=== PATIENT | male | born 1955 | race Caucasian/White ===

== ENCOUNTER 2021-03-10 02:24 | Emergency (ER) | payer MEDICARE ==
[~2021-03-10] VITALS: Ht 185.4 cm; Wt 115.9 kg
[2021-03-10 02:28] VITALS: BP 113/72
[2021-03-10] MEDS ORDERED: normal saline 1000ml 1,000 ML IV ONE (02:55)
[2021-03-10 03:16] LABS: BASOPHILS # (AUTO) 0.1 X10'3 (0-0.2); BASOPHILS % (AUTO) 0.9 % (0-1); EOSINOPHILS # (AUTO) 0.2 X10'3 (0-0.9); EOSINOPHILS % (AUTO) 3.1 % (0-6); HEMATOCRIT 41.6 % (42.0-52.0); LYMPHOCYTES # (AUTO) 0.7 X10'3 (1.1-4.8); LYMPHOCYTES % (AUTO) 10.1 % (21-51); MEAN CORPUSCULAR HEMOGLOBIN 32.8 PG (27.0-31.0); MEAN CORPUSCULAR HGB CONC 33.7 g/dL (33.0-36.5); MEAN CORPUSCULAR VOLUME 97.5 FL (78-98); MONOCYTES # (AUTO) 0.7 X10'3 (0-0.9); MONOCYTES % (AUTO) 9.5 % (2-12); NEUTROPHILS # (AUTO) 5.6 X10'3 (1.8-7.7); NEUTROPHILS % (AUTO) 76.4 % (42-75); PLATELET COUNT 175 X10'3 (140-440); RED BLOOD COUNT 4.27 X10'6 (4.70-6.10); RED CELL DISTRIBUTION WIDTH 14.6 % (11.5-14.5); WHITE BLOOD COUNT 7.3 X10'3 (4.5-11.0)
[2021-03-10 03:20] LABS: ALANINE AMINOTRANSFERASE 22 U/L (12-78); ALBUMIN 3.9 G/DL (3.4-5.0); ALBUMIN/GLOBULIN RATIO 0.9 (1.1-1.5); ALKALINE PHOSPHATASE 102 IU/L (46-116); ANION GAP 9 (8-16); ASPARTATE AMINO TRANSFERASE 17 U/L (10-37); BILIRUBIN,TOTAL 0.9 MG/DL (0.1-1.0); BLOOD UREA NITROGEN 49 MG/DL (7-18); BUN/CREATININE RATIO 17.9 (5.4-32.0); CALCIUM 8.6 MG/DL (8.5-10.1); CHLORIDE 98 MMOL/L (99-107); CREATININE 2.74 MG/DL (0.60-1.10); ETHANOL < 0.010 GM/DL (0.0-0.010); GLUCOSE 218 MG/DL (70-104); MAGNESIUM 1.9 MG/DL (1.5-2.4); POTASSIUM 4.5 MMOL/L (3.5-5.1); SODIUM 135 MMOL/L (135-145); TOTAL CARBON DIOXIDE 28.5 MMOL/L (24-32); TOTAL PROTEIN 8.1 G/DL (6.4-8.2); eGFR 23 ML/MIN
[2021-03-10 03:40] LABS: CLARITY,URINE CLEAR (Clear); COLOR,URINE STRAW (Yellow); GLUCOSE, URINE NEGATIVE (Neg); KETONES,URINE NEGATIVE (Neg); LEUKOCYTE ESTERASE ,URINE NEGATIVE (Neg); NITRITES, URINE NEGATIVE (Neg); OCCULT BLOOD,URINE TRACE-INTACT (Neg); PH,URINE 6.5 (4.8-8.0); PROTEIN,URINE NEGATIVE (Neg); UROBILINOGEN,URINE 0.2 E.U/dL (0.2-1.0)
[2021-03-10] MEDS ORDERED: TETanus/Pertussis (Acell)/Diphther VAC/PF (Tdap-Adult) 0.5ml syringe IMVAC ONE (03:40)
[2021-03-10 03:42] LABS: UA COLLECTION TYPE CLN CATCH MIDSTREAM
[2021-03-10 03:49] LABS: BACTERIA,URINE NONE SEEN /HPF (Neg); MUCUS STRANDS NONE SEEN /LPF (Neg); RBC,URINE 0-2 /HPF (0-2); SQUAMOUS EPITHELIAL CELL,UR NONE SEEN /LPF (FEW); WBC,URINE NONE SEEN /HPF (0-4)
== END 2021-03-10 05:29 | disposition home or self-care (01) ==
LOC: ER 02:26
DX: S80.01XA Contusion of right knee, initial encounter (principal); R55 Syncope and collapse; N19 Unspecified kidney failure; M25.461 Effusion, right knee; I25.10 Atherosclerotic heart disease of native coronary artery without angina pectoris; I50.9 Heart failure, unspecified; E11.9 Type 2 diabetes mellitus without complications; F17.200 Nicotine dependence, unspecified, uncomplicated; Z20.3 Contact with and (suspected) exposure to rabies; Z98.890 Other specified postprocedural states; X58.XXXA Exposure to other specified factors, initial encounter; Y93.89 Activity, other specified; Y92.89 Other specified places as the place of occurrence of the external cause; Y99.8 Other external cause status
CPT/HCPCS: 36415; 71045; 73564; 80053; 80320; 81001; 83735; 84484; 85025; 90471; 90715; 93005; 99285

== ENCOUNTER 2021-11-29 09:57 | Outpatient (CLI) | payer MEDICARE, MEDICAID ==
[~2021-11-29] VITALS: Ht 185.4 cm; Wt 102.1 kg
[2021-11-29 10:44] LABS: TOTAL HEMOGLOBIN 15.4 G/dl (14.0-18.0)
[2021-11-29] MEDS ORDERED: albuterol 2.5 MG/3 ML nebule NEB PRN (11:05)
== END 2021-11-29 23:59 | disposition home or self-care (01) ==
LOC: RT 09:57
PROVIDERS: ATTEND Nurse Practitioner
DX: J44.9 Chronic obstructive pulmonary disease, unspecified (principal); Z87.891 Personal history of nicotine dependence; Z79.899 Other long term (current) drug therapy
CPT/HCPCS: 85018; 94060; 94727; 94729; 94760

== ENCOUNTER 2022-02-18 09:32 | Outpatient (CLI) | payer MEDICARE, MEDICAID | END 2022-02-18 23:59 | disposition home or self-care (01) | LOC: VAS 09:32 | PROVIDERS: ATTEND Surgery | DX: I70.291 Other atherosclerosis of native arteries of extremities, right leg (principal); I70.8 Atherosclerosis of other arteries | CPT/HCPCS: 93922; 93926 ==

== ENCOUNTER 2022-03-26 21:56 | Emergency (ER) | payer MEDICARE, MEDICAID ==
[~2022-03-26] VITALS: Ht 185.4 cm; Wt 104.5 kg
[~2022-03-26 21:56] MED LIST: ALBU18HF2 PO; ALBU2.5V10 NEB; APIX5TAB3 PO; ASPI-611 PO; ATOR40TA72 PO; BUME2TAB7 PO; EPLE25TA4 PO; FLUT1BLS4 INH; FURO40TA4 PO; HYDR-3972 PO; INSU300I3 SQ; ISOS10TA8 PO; LORA10TA7 PO; METO-384 PO; NOVRI SQ; PRE5T PO; RANO500T6 PO; SACU1TAB PO
[2022-03-26] MEDS ORDERED: pantoprazole 40MG/NS 100ML BAG 100 ML IV ONE ×2 (22:40→22:45)
--- NOTE | 2022-03-26 23:30 | NUR ---
IV was not able to be obtianed at this time and labs will need to be resent.
[2022-03-26 23:54] LABS: BASOPHILS # (AUTO) 0.1 X10'3 (0-0.2); BASOPHILS % (AUTO) 1.3 % (0-1); EOSINOPHILS % (AUTO) 0.8 % (0-6); HEMATOCRIT 44.6 % (42.0-52.0); HEMOGLOBIN 15.1 g/dl (14.0-17.9); LYMPHOCYTES # (AUTO) 0.8 X10'3 (1.1-4.8); LYMPHOCYTES % (AUTO) 14.3 % (21-51); MEAN CORPUSCULAR HEMOGLOBIN 29.8 PG (27.0-31.0); MEAN CORPUSCULAR HGB CONC 33.8 g/dL (33.0-36.5); MEAN CORPUSCULAR VOLUME 88.4 FL (78-98); MEAN PLATELET VOLUME 8.6 FL (7.4-10.4); MONOCYTES # (AUTO) 0.5 X10'3 (0-0.9); MONOCYTES % (AUTO) 10.2 % (2-12); NEUTROPHILS # (AUTO) 3.9 X10'3 (1.8-7.7); NEUTROPHILS % (AUTO) 73.4 % (42-75); PLATELET COUNT 193 X10'3 (140-440); RED BLOOD COUNT 5.04 X10'6 (4.70-6.10); WHITE BLOOD COUNT 5.3 X10'3 (4.5-11.0)
--- NOTE | 2022-03-27 00:25 | NUR ---
residential fee appraiser still aware pt needs an IV and labs. Lab attempted to draw blood 3 times and was not successful
[2022-03-27 01:00] VITALS: BP 103/65
== END 2022-03-27 01:11 | disposition home or self-care (01) ==
LOC: ER 21:58
DX: Z71.1 Person with feared health complaint in whom no diagnosis is made (principal); I50.9 Heart failure, unspecified; E11.9 Type 2 diabetes mellitus without complications; Z87.891 Personal history of nicotine dependence
CPT/HCPCS: 36415; 85025; 86885; 86900; 86901; 93005; 99284

== ENCOUNTER 2022-08-20 10:19 | Inpatient (IN) | payer MEDICARE, MEDICAID ==
[2022-08-20] VITALS (10 sets, daily range): BP systolic 76–129; BP diastolic 50–97
[~2022-08-20] VITALS: Ht 185.4 cm; Wt 105.4 kg
[~2022-08-20 10:19] MED LIST changes: -FURO40TA4 PO
[2022-08-20] MEDS ORDERED: ipratropium/albuterol 3ml nebule NEB ONE (10:25)
[2022-08-20] MEDS ORDERED: azithromycin/NS 500mg/250ml 250 ML IV ONE (10:25)
[2022-08-20] MEDS ORDERED: CefTRIAXone 2gm/D5W 50ml BAG 50 ML IV ONE (10:25)
[2022-08-20] MEDS ORDERED: normal saline 1000ML IV soln IV ONE (10:25)
[2022-08-20] MEDS ORDERED: methylPREDNISolone sod succ 125mg/2ml vial IV ONE (10:29)
--- NOTE | 2022-08-20 11:05 | NUR ---
IV FLUIDS INFUSING ON PRESSURE BAG - RT AT BEDSIDE FOR ABG AND SVN - LABS SENT, EKG AND XRAY DONE
[2022-08-20 11:09] LABS: BASOPHILS % (AUTO) 0.2 % (0-1); EOSINOPHILS # (AUTO) 0.1 X10'3 (0-0.9); EOSINOPHILS % (AUTO) 0.3 % (0-6); HEMOGLOBIN 13.1 g/dl (14.0-17.9); LYMPHOCYTES # (AUTO) 0.2 X10'3 (1.1-4.8); LYMPHOCYTES % (AUTO) 1.2 % (21-51); MEAN CORPUSCULAR HEMOGLOBIN 32.2 PG (27.0-31.0); MEAN CORPUSCULAR HGB CONC 33.5 g/dL (33.0-36.5); MEAN CORPUSCULAR VOLUME 96.1 FL (78-98); MEAN PLATELET VOLUME 8.7 FL (7.4-10.4); MONOCYTES # (AUTO) 0.5 X10'3 (0-0.9); MONOCYTES % (AUTO) 3.2 % (2-12); NEUTROPHILS # (AUTO) 16.3 X10'3 (1.8-7.7); NEUTROPHILS % (AUTO) 95.1 % (42-75); PLATELET COUNT 118 X10'3 (140-440); RED BLOOD COUNT 4.06 X10'6 (4.70-6.10); WHITE BLOOD COUNT 17.1 X10'3 (4.5-11.0)
[2022-08-20 11:23] LABS: ALANINE AMINOTRANSFERASE 18 U/L (12-78); ALBUMIN 2.4 G/DL (3.4-5.0); ALBUMIN/GLOBULIN RATIO 0.5 (1.1-1.5); ALKALINE PHOSPHATASE 79 IU/L (46-116); ANION GAP 16 (8-16); ASPARTATE AMINO TRANSFERASE 29 U/L (10-37); BILIRUBIN,TOTAL 3.3 MG/DL (0.1-1.0); BLOOD UREA NITROGEN 75 MG/DL (7-18); CALCIUM 7.8 MG/DL (8.5-10.1); CHLORIDE 88 MMOL/L (99-107); GLUCOSE 88 MG/DL (70-104); POTASSIUM 3.8 MMOL/L (3.5-5.1); SODIUM 126 MMOL/L (135-145); TOTAL CARBON DIOXIDE 21.6 MMOL/L (24-32)
[2022-08-20 11:26] LABS: CREATININE 3.95 MG/DL (0.60-1.10); eGFR 15 ML/MIN
--- NOTE | 2022-08-20 11:33 | NUR ---
pt being placed on bipap by RT - 2L infused, hanging 3rd liter now - IV rocephin done starting zithromax now.
[2022-08-20] MEDS ORDERED: NORepinephrine 8mg/ 250ml NS 250 ML IV ONE ×2 (11:35→15:35)
[2022-08-20] MEDS ORDERED: vancomycin/NS 1 GM ADD-VANTAGE 250 ML IV ONE (11:40)
[2022-08-20] MEDS ORDERED: levoFLOXACIN-Levaquin 750MG/D5 150 ML IV ONE (11:40)
[2022-08-20] MEDS ORDERED: LIDOcaine 2% 10ml TOPICAL JELLY (Urojet) TP ONE ×2 (11:45→15:39)
--- NOTE | 2022-08-20 12:12 | NUR ---
at this time only IV access is peripheral 18g to right AC - pt Addendum: 08/20/22 at 1240 by IVETT needs both abx and levophed at this time. spoke with PA regarding incompatability of meds and he states hold abx for now and start levophed. pt rec'd full ordered dose of recephin and appox 1/3 dose of zithromax before d\c of abx for levophed
[2022-08-20 12:30] LABS: ABG BASE EXCESS -8.7 mmol/L (-2.0-2.0); ABG HCO3 17.2 mmol/L (22.0-26.0); ABG PCO2 (T) 36.3 mmHg (35.0-48.0); ABG PO2 (T) 203.5 mmHg (75.0-100.0); ALLEN'S TEST POSITIVE; FCOHb 0.5 % (0.0-3.9); FMetHb 0.4 % (0.0-1.5); FO2Hb 98.1 % (94-97); PATIENT TEMPERATURE 36.6; RESPIRATORY RATE 10 b/min; TOTAL HEMOGLOBIN 14.1 G/dl (14.0-17.9)
--- NOTE | 2022-08-20 14:40 | NUR ---
ELECTRONIC HEALTH RECORDS SPECIALIST AT BEDSIDE FOR EVAL - HE IS AWARE LEVOPHED IS STILL RUNNING THRU A PERIPHERAL VEIN AND THAT PT HAS NO CENTRAL ACCESS AND WE HAVE NOT BEEN ABLE TO ADMIN ABX THAT ARE DUE. PT IS NOW STATING THAT HE WILL AGREE TO BE INTUBATED SHOULD WE NEED TO PROCEED THAT ROUTE. HE REMAINS ON BIPAP AT THIS TIME. VERBAL GIVEN TO RUN NS @125ML/HR
[2022-08-20] MEDS ORDERED: PANT40TA54 PO (14:54)
[2022-08-20] MEDS ORDERED: MONT-40 PO (14:54)
[2022-08-20] MEDS ORDERED: magnesium hydroxide 30ml (MOM) UD suspension PO PRN (14:55)
[2022-08-20] MEDS ORDERED: morphine 4 MG/ML inj SYRINge IV PRN (14:55)
[2022-08-20] MEDS ORDERED: acetaminophen 325mg tablet PO PRN ×2 (14:55)
[2022-08-20] MEDS ORDERED: POTASSIUM BICARB 20meq eff tab 20 MEQ TABLET.EFF PO PRN ×2 (14:55)
[2022-08-20] MEDS ORDERED: morphine 2 MG/ML inj. syringe IV PRN (14:55)
[2022-08-20] MEDS ORDERED: succinylcholine 20mg/ml inj IV ONE ×2 (14:57→15:00)
[2022-08-20] MEDS ORDERED: etomidate 2mg/ml inj. IV ONE (15:00)
[2022-08-20] MEDS ORDERED: midazolam 1 mg/ML 2ml injection IV ONE (15:21)
--- NOTE | 2022-08-20 15:21 | NUR ---
4MG VERSED GIVEN WHILE PHARMACY PREPARES DRIP - VERBAL FROM MD FORDN
--- NOTE | 2022-08-20 15:23 | NUR ---
50 MG SRIDHAR GIVEN PER OHN
[2022-08-20 15:26] LABS: ABG BASE EXCESS -10.7 mmol/L (-2.0-2.0); ABG HCO3 16.1 mmol/L (22.0-26.0); ABG OXYGEN SATURATION 92.9 % (94-97); ABG PO2 (T) 79.2 mmHg (75.0-100.0); ALLEN'S TEST POSITIVE; FCOHb 0.8 % (0.0-3.9); FMetHb 0.4 % (0.0-1.5); FO2Hb 91.8 % (94-97); PATIENT TEMPERATURE 37.6; PEEP 5 cm H2O; RESPIRATORY RATE 18 b/min; TIDAL VOLUME 550 mL; TOTAL HEMOGLOBIN 15.4 G/dl (14.0-17.9)
[2022-08-20] MEDS ORDERED: FENTANYL-0.9 % NACL/PF 100 ML IV PRN (15:29)
[2022-08-20] MEDS ORDERED: midazolam 100mg in NS 100ml 100 ML IV PRN (15:30)
[2022-08-20] MEDS ORDERED: cefepime 1GM/NS ADD-VANTAGE 100 ML IV SCH (16:00)
[2022-08-20] MEDS ORDERED: cefepime 1GM/NS ADD-VANTAGE 100 ML IV ONE (16:12)
--- NOTE | 2022-08-20 16:13 | NUR ---
FAMILY WAS IN LOBBY WAITING TO SEE PT - WE WERE PLACING CENTRAL LINE AND ECHO WAS AT BEDSIDE SO THERE WAS A DELAY. WHEN WE WENT TO GET FAMILY WE WERE INFORMED THAT THEY LEFT TO GO [facility] AND WOULD BE BACK LATER.
--- NOTE | 2022-08-20 17:26 | NUR ---
NOTIFIED DR GONZALEZ THAT PT BRIEFLY DESATTED TO THE HIGH 80S FOR APPROX FIVE MINUTES AFTER PLACEMENT OF OG TUBE. PT IS NOW SATTING AT [address] GONZALEZ, D/C VERSED DRIP AND CONT FENTANYL DRIP ONLY. ICU BED TO BE AVAILABLE TO PT AFTER SHIFT CHANGE.
--- NOTE | 2022-08-20 17:43 | NUR ---
PREVIOUS NOTE WRITTEN BY THIS RN, CHARTED UNDER G. ASPIRIN IN ERROR
--- NOTE | 2022-08-20 18:02 | NUR ---
FENTANYL BOLUS 25MCG GIVEN. AFTER D\C OF VERSED PT IS MOVING HANDS AND SOME LEG MOVEMENT -
--- NOTE | 2022-08-20 18:55 | NUR ---
Patient here from ER into room CICU 2011. I have received report from David KISER and had the opportunity to ask questions and assume patient care. Patient awake, restless and trying to cough out ET tube, titrating fentanyl drip for patient comfort and ventilator synchrony.
[2022-08-20] MEDS: NORepinephrine 8mg/ 250ml NS 250 ML IV ONE ×2 (19:25→19:50)
--- NOTE | 2022-08-20 19:53 | NUR ---
Security at bedside to confiscate white, crystal powder substance found in pt's belongings; awaiting ER registration to pickle sorter lg amt of rico $713.00 found in pt's wallet.
[2022-08-20] MEDS ORDERED: dextrose 50%-water 50ml dispensing syringe IV PRN ×2 (20:30)
[2022-08-20 20:34] LABS: CLARITY,URINE CLOUDY (Clear); COLOR,URINE YELLOW (Yellow); GLUCOSE, URINE NEGATIVE (Neg); KETONES,URINE NEGATIVE (Neg); LEUKOCYTE ESTERASE ,URINE NEGATIVE (Neg); NITRITES, URINE NEGATIVE (Neg); OCCULT BLOOD,URINE LARGE (Neg); PROTEIN,URINE 30 mg/dl (Neg)
[2022-08-20] MEDS: dexmedetomidin/NS 400mcg/100ml 100 ML IV PRN (20:35)
[2022-08-20 20:40] LABS: UA COLLECTION TYPE NON-SPECIFIED
[2022-08-20] MEDS ORDERED: DOPamine 400mg/D5W 250ml 250 ML IV SCH (20:45)
[2022-08-20 20:49] LABS: BACTERIA,URINE 1+ /HPF (Neg); RBC,URINE 20-50 /HPF (0-2); SQUAMOUS EPITHELIAL CELL,UR FEW /LPF (FEW); WBC,URINE 0-4 /HPF (0-4)
[2022-08-20 20:50] LABS: HYALINE CASTS 0-3 /LPF (NEGATIVE); MUCUS STRANDS FEW /LPF (Neg)
[2022-08-20] MEDS ORDERED: bumetanide 0.25mg/ml 4ml vial IV ONE (20:50)
[2022-08-20 20:51] LABS: AMORPHOUS URATES 3+
[2022-08-20] MEDS: insulin glargine (Lantus) pen - multi-dose SQ SCH (21:00)
[2022-08-20] MEDS: ringers solution, lacted 1,000 ML IV SCH (21:06)
[2022-08-20] MEDS: NORepinephrine inj. 32 MG in normal saline 250ml IV soln 218 ML IV SCH (23:08)
[2022-08-20] MEDS: FENTANYL-0.9 % NACL/PF 100 ML IV PRN (23:13)
[2022-08-20 23:23] LABS: HEMOGLOBIN A1C 6.3 % (4.5-6.2)
[2022-08-21] VITALS (34 sets, daily range): BP systolic 84–125; BP diastolic 47–75
[2022-08-21 00:11] LABS: ABG BASE EXCESS -14.1 mmol/L (-2.0-2.0); ABG HCO3 13.2 mmol/L (22.0-26.0); ABG OXYGEN SATURATION 96.6 % (94-97); ABG PCO2 (T) 34.8 mmHg (35.0-48.0); ABG PO2 (T) 94.4 mmHg (75.0-100.0); ALLEN'S TEST POSITIVE; FCOHb 0.3 % (0.0-3.9); FMetHb 0.6 % (0.0-1.5); FO2Hb 95.7 % (94-97); PATIENT TEMPERATURE 36.6; PEEP 5 cm H2O; RESPIRATORY RATE 24 b/min; TIDAL VOLUME 500 mL; TOTAL HEMOGLOBIN 16.2 G/dl (14.0-17.9)
[2022-08-21] MEDS ORDERED: sodium bicarbonate (8.4%) inj. 100 MEQ in sodium chloride 0.45% 1,000 ML IV SCH (00:20)
[2022-08-21] MEDS: methylPREDNISolone sod succ 125mg/2ml vial IV SCH ×3 (00:54→16:37)
[2022-08-21] MEDS: cefepime 1GM/NS ADD-VANTAGE 100 ML IV SCH ×2 (00:54→08:18)
[2022-08-21] MEDS: insulin Lispro (HumaLOG) vial - multi-dose SQ SCH ×2 (02:22→08:16)
[2022-08-21 02:52] LABS: BASOPHILS % (AUTO) 0.1 % (0-1); EOSINOPHILS # (AUTO) 0.2 X10'3 (0-0.9); EOSINOPHILS % (AUTO) 0.7 % (0-6); HEMATOCRIT 45.3 % (42.0-52.0); HEMOGLOBIN 14.7 g/dl (14.0-17.9); LYMPHOCYTES # (AUTO) 0.2 X10'3 (1.1-4.8); LYMPHOCYTES % (AUTO) 0.7 % (21-51); MEAN CORPUSCULAR HEMOGLOBIN 31.4 PG (27.0-31.0); MEAN CORPUSCULAR HGB CONC 32.4 g/dL (33.0-36.5); MEAN CORPUSCULAR VOLUME 96.8 FL (78-98); MEAN PLATELET VOLUME 9.9 FL (7.4-10.4); MONOCYTES # (AUTO) 0.6 X10'3 (0-0.9); MONOCYTES % (AUTO) 1.8 % (2-12); NEUTROPHILS # (AUTO) 30.5 X10'3 (1.8-7.7); NEUTROPHILS % (AUTO) 96.7 % (42-75); PLATELET COUNT 152 X10'3 (140-440); RED BLOOD COUNT 4.68 X10'6 (4.70-6.10); RED CELL DISTRIBUTION WIDTH 15.4 % (11.5-14.5)
[2022-08-21 02:55] LABS: WHITE BLOOD COUNT 31.6 X10'3 (4.5-11.0)
[2022-08-21 03:16] LABS: PLATELET ESTIMATE NORMAL; TOTAL CELLS COUNTED 100
[2022-08-21 03:17] LABS: ANION GAP 22 (8-16); BLOOD UREA NITROGEN 78 MG/DL (7-18); BUN/CREATININE RATIO 27.6 (5.4-32.0); BURR CELLS FEW; CALCIUM 7.2 MG/DL (8.5-10.1); CHLORIDE 94 MMOL/L (99-107); CREATININE 2.83 MG/DL (0.60-1.10); GLUCOSE 194 MG/DL (70-104); MAGNESIUM 1.5 MG/DL (1.5-2.4); PHOSPHORUS 6.5 MG/DL (2.3-4.5); POLYCHROMASIA FEW; POTASSIUM 4.3 MMOL/L (3.5-5.1); SODIUM 131 MMOL/L (135-145); eGFR 22 ML/MIN
[2022-08-21 03:22] LABS: TOTAL CARBON DIOXIDE 14.6 MMOL/L (24-32)
[2022-08-21] MEDS ORDERED: amiodarone 150mg/dext, iso-os 100 ML IV ONE (04:15)
--- NOTE | 2022-08-21 04:15 | NUR ---
Patient converted to Afib w/RVR sustaining in the 140s to 150s. Laith Iverson notified, orders received.
[2022-08-21] MEDS: amiodarone/D5 360MG/200ML BAG 200 ML IV SCH ×3 (04:24→20:51)
[2022-08-21] MEDS: dexmedetomidin/NS 400mcg/100ml 100 ML IV PRN (05:06)
--- NOTE | 2022-08-21 05:42 | NUR ---
Orientee documentation: I have reviewed and agree with all interventions, assessments performed and documented by Taylor KISER . Orientjennifer Medication Administration: For this medication-pass time frame, all medication were reviewed, dispensed, administered and documented per hospital policy by Taylor KISER .
--- NOTE | 2022-08-21 06:21 | NUR ---
Problems reprioritized. Patient report given, questions answered & plan of care reviewed with RASHEL Larsen.
[2022-08-21 07:03] LABS: ABG BASE EXCESS -14.6 mmol/L (-2.0-2.0); ABG HCO3 12.1 mmol/L (22.0-26.0); ABG OXYGEN SATURATION 94.5 % (94-97); ABG PCO2 (T) 33.5 mmHg (35.0-48.0); ABG PO2 (T) 85.2 mmHg (75.0-100.0); ALLEN'S TEST POSITIVE; FCOHb 0.3 % (0.0-3.9); FMetHb 0.5 % (0.0-1.5); FO2Hb 93.7 % (94-97); PATIENT TEMPERATURE 38.2; PEEP 5 cm H2O; RESPIRATORY RATE 24 b/min; TIDAL VOLUME 500 mL; TOTAL HEMOGLOBIN 16.7 G/dl (14.0-17.9)
[2022-08-21] MEDS: FENTANYL-0.9 % NACL/PF 100 ML IV PRN ×3 (07:21→16:32)
[2022-08-21] MEDS: K and/or MAG REPLACEMENT MC SCH (08:00)
[2022-08-21] MEDS ORDERED: sodium bicarbonate (8.4%) inj. 150 MEQ in sodium chloride 0.45% 850 ML IV SCH (09:06)
[2022-08-21] MEDS: sodium bicarbonate (8.4%) inj. 150 MEQ in dextrose 5%-water 850 ML IV SCH ×2 (09:25→20:25)
[2022-08-21] MEDS ORDERED: vasopressin inj. 40 UNIT in dextrose 5%-water 50ml 38 ML IV SCH (10:20)
[2022-08-21] MEDS: vasopressin inj. 40 UNIT in normal saline 50ml IV soln 38 ML IV SCH (10:56)
--- NOTE | 2022-08-21 11:15 | NUR ---
DM/TF consults: Per EMR pt with T2DM, well controlled with A1c 6.3%, DM education not warranted. Pt admit for septic shock secondary to PNA, currently intubated with an OGT in place, to begin TF per MD. See TF recs below that were placed in EMR. Per MD pt to begin Phos binder d/t elevated serum phos of 6.5 mg/dL. Per RN pt with h/o requiring dialysis and currently has a fistula in place, receiving weigher to be consulted. LBM 08/18, with PRN bowel care available. Will continue to follow closely. Recommendations: 1) Continuous Pivot 1.5 via OGT with 70 mL/hr goal to provide 1680 mL total volume/day, 2520 kcal, 158 g protein, and 1275 mL water 2) No additional water flush at this time d/t hyponatremia; monitor serum Na 3) Routine phos binder per MD 4) Prealbumin q Thursday/ 5) Daily scaled weights 6) Routine bowel care Addendum: 08/21/22 at [address] Amended: Links added.
[2022-08-21] MEDS: pantoprazole 40MG/NS 100ML BAG 100 ML IV SCH (11:37)
[2022-08-21 12:05] LABS: PREALBUMIN 6.6 MG/DL (19-36)
[2022-08-21] MEDS ORDERED: calcium acetate 667mg (PhosLO) capsule PO SCH (13:00)
[2022-08-21] MEDS: propofol 1000mg/100ml bottle 100 ML IV SCH (13:32)
[2022-08-21] MEDS: insulin regular, human U-100 3ml vial - multi-dose SQ SCH ×2 (14:30→20:59)
[2022-08-21] MEDS ORDERED: VANCOMYCIN 750MG IV in NS 250 ML IV SCH (15:00)
[2022-08-21 16:32] LABS: ABG BASE EXCESS -7.8 mmol/L (-2.0-2.0); ABG HCO3 17.2 mmol/L (22.0-26.0); ABG OXYGEN SATURATION 98.4 % (94-97); FCOHb 0.1 % (0.0-3.9); FMetHb 0.5 % (0.0-1.5); FO2Hb 97.8 % (94-97); PATIENT TEMPERATURE 38.2; PEEP 5 cm H2O; RESPIRATORY RATE 24 b/min; TIDAL VOLUME 500 mL; TOTAL HEMOGLOBIN 15.8 G/dl (14.0-17.9)
[2022-08-21] MEDS ORDERED: magnesium hydroxide 30ml (MOM) UD suspension OGT PRN (16:36)
[2022-08-21] MEDS ORDERED: POTASSIUM BICARB 20meq eff tab 20 MEQ TABLET.EFF OGT PRN ×2 (16:36→16:37)
[2022-08-21] MEDS ORDERED: calcium acetate 667mg (PhosLO) capsule OGT SCH (16:36)
[2022-08-21] MEDS ORDERED: acetaminophen 325mg/10.15ml oral unit dose solution OGT PRN (16:36)
[2022-08-21] MEDS: heparin, porcine 5000 units/ml vial SQ SCH (16:37)
[2022-08-21] MEDS ORDERED: vancomycin inj 500 MG in normal saline 100ml IV soln 100 ML IV SCH (17:00)
[2022-08-21 18:17] LABS: ALANINE AMINOTRANSFERASE 23 U/L (12-78); ALBUMIN 1.8 G/DL (3.4-5.0); ALBUMIN/GLOBULIN RATIO 0.4 (1.1-1.5); ALKALINE PHOSPHATASE 81 IU/L (46-116); ANION GAP 18 (8-16); ASPARTATE AMINO TRANSFERASE 50 U/L (10-37); BILIRUBIN,TOTAL 3.6 MG/DL (0.1-1.0); BLOOD UREA NITROGEN 87 MG/DL (7-18); CHLORIDE 94 MMOL/L (99-107); CREATININE 2.35 MG/DL (0.60-1.10); GLUCOSE 262 MG/DL (70-104); SODIUM 129 MMOL/L (135-145); TOTAL PROTEIN 6.1 G/DL (6.4-8.2); TRIGLYCERIDES 239 MG/DL (20-135); eGFR 28 ML/MIN
--- NOTE | 2022-08-21 18:26 | NUR ---
Patient in room CICU 2011. I have received report from RASHEL Larsen and had the opportunity to ask questions and assume patient care.
[2022-08-21] MEDS ORDERED: calcium acetate 667mg (PhosLO) capsule OGT ONE (20:00)
[2022-08-21] MEDS: NORepinephrine inj. 32 MG in normal saline 250ml IV soln 218 ML IV SCH (20:52)
[2022-08-21] MEDS: insulin glargine (Lantus) pen - multi-dose SQ SCH (21:08)
[2022-08-21] MEDS: fentaNYL/NS/PF 2,500 mcg/250mL 250 ML IV PRN (21:30)
[2022-08-22] VITALS (36 sets, daily range): BP systolic 96–128; BP diastolic 53–73
[2022-08-22] MEDS: propofol 1000mg/100ml bottle 100 ML IV SCH ×3 (00:42→22:52)
[2022-08-22] MEDS: methylPREDNISolone sod succ 125mg/2ml vial IV SCH ×3 (00:42→16:07)
[2022-08-22] MEDS: heparin, porcine 5000 units/ml vial SQ SCH ×3 (00:43→16:07)
[2022-08-22] MEDS: insulin regular, human U-100 3ml vial - multi-dose SQ SCH ×3 (02:23→14:18)
[2022-08-22 02:31] LABS: BASOPHILS # (AUTO) 0.1 X10'3 (0-0.2); BASOPHILS % (AUTO) 0.6 % (0-1); EOSINOPHILS % (AUTO) 0.1 % (0-6); HEMATOCRIT 43.3 % (42.0-52.0); HEMOGLOBIN 14.4 g/dl (14.0-17.9); LYMPHOCYTES # (AUTO) 0.2 X10'3 (1.1-4.8); LYMPHOCYTES % (AUTO) 1.5 % (21-51); MEAN CORPUSCULAR HEMOGLOBIN 31.5 PG (27.0-31.0); MEAN CORPUSCULAR HGB CONC 33.2 g/dL (33.0-36.5); MEAN CORPUSCULAR VOLUME 94.9 FL (78-98); MEAN PLATELET VOLUME 9.3 FL (7.4-10.4); MONOCYTES # (AUTO) 0.4 X10'3 (0-0.9); MONOCYTES % (AUTO) 2.8 % (2-12); NEUTROPHILS # (AUTO) 14.2 X10'3 (1.8-7.7); PLATELET COUNT 175 X10'3 (140-440); RED BLOOD COUNT 4.57 X10'6 (4.70-6.10); RED CELL DISTRIBUTION WIDTH 15.3 % (11.5-14.5); WHITE BLOOD COUNT 14.9 X10'3 (4.5-11.0)
[2022-08-22] MEDS: amiodarone/D5 360MG/200ML BAG 200 ML IV SCH ×4 (02:37→16:16)
[2022-08-22 03:44] LABS: ABG BASE EXCESS -1.8 mmol/L (-2.0-2.0); ABG HCO3 22.1 mmol/L (22.0-26.0); ABG OXYGEN SATURATION 97.6 % (94-97); ABG PCO2 (T) 35.7 mmHg (35.0-48.0); ABG PO2 (T) 101.3 mmHg (75.0-100.0); FCOHb 0.1 % (0.0-3.9); FMetHb 0.5 % (0.0-1.5); PATIENT TEMPERATURE 37.3; PEEP 5 cm H2O; RESPIRATORY RATE 25 b/min; TIDAL VOLUME 500 mL; TOTAL HEMOGLOBIN 15.7 G/dl (14.0-17.9)
[2022-08-22 03:50] LABS: ALBUMIN 1.7 G/DL (3.4-5.0); ANION GAP 16 (8-16); BLOOD UREA NITROGEN 82 MG/DL (7-18); CALCIUM 7.2 MG/DL (8.5-10.1); CHLORIDE 95 MMOL/L (99-107); GLUCOSE 334 MG/DL (70-104); MAGNESIUM 1.6 MG/DL (1.5-2.4); PHOSPHORUS 4.4 MG/DL (2.3-4.5); SODIUM 132 MMOL/L (135-145); TOTAL CARBON DIOXIDE 20.8 MMOL/L (24-32); eGFR 32 ML/MIN
[2022-08-22 04:11] LABS: POTASSIUM 3.7 MMOL/L (3.5-5.1)
[2022-08-22 04:24] LABS: TRIGLYCERIDES 337 MG/DL (20-135)
[2022-08-22] MEDS: vasopressin inj. 40 UNIT in normal saline 50ml IV soln 38 ML IV SCH (05:12)
[2022-08-22] MEDS: calcium acetate 667mg (PhosLO) capsule OGT SCH ×3 (07:41→17:22)
[2022-08-22] MEDS: cefepime 1GM/NS ADD-VANTAGE 100 ML IV SCH (07:42)
[2022-08-22] MEDS: pantoprazole 40MG/NS 100ML BAG 100 ML IV SCH (07:42)
[2022-08-22] MEDS ORDERED: levoFLOXACIN-Levaquin 250mg/D5 50 ML IV SCH (08:00)
[2022-08-22] MEDS: K and/or MAG REPLACEMENT MC SCH (08:00)
[2022-08-22] MEDS: sodium bicarbonate (8.4%) inj. 150 MEQ in dextrose 5%-water 850 ML IV SCH ×2 (08:43→19:36)
[2022-08-22] MEDS ORDERED: DEXMEDETOMIDINE IN 0.9 % NACL 50 ML IV SCH (09:05)
[2022-08-22] MEDS: dexmedetomidine inj. 400 MCG in normal saline 100ml IV soln 96 ML IV SCH ×2 (09:41→19:10)
[2022-08-22] MEDS: erythromycin base 250mg tablet OGT SCH ×2 (10:41→16:07)
[2022-08-22] MEDS: fentaNYL/NS/PF 2,500 mcg/250mL 250 ML IV PRN (11:04)
--- NOTE | 2022-08-22 11:34 | NUR ---
F/u: Per bedside RN TF is off at this time d/t elevated GRV with range 20-525 mL. Noted pt with no BM since 08/18 and not receiving any bowel care, d/w MD. Pt to begin routine Erythromycin to assist with gut motility per MD. Will continue to follow closely. Addendum: 08/22/22 at [address] Amended: Links added.
--- NOTE | 2022-08-22 12:15 | NUR ---
Patient in room CICU 2011. I have received report from RASHEL Larsen and had the opportunity to ask questions and assume patient care.
[2022-08-22] MEDS: vancomycin/NS 1 GM ADD-VANTAGE 250 ML IV SCH (14:59)
--- NOTE | 2022-08-22 18:26 | NUR ---
Problems reprioritized. Patient report given, questions answered & plan of care reviewed with RASHEL Vazquez.
--- NOTE | 2022-08-22 18:30 | NUR ---
Patient in room CICU 2011. I have received report from RASHEL Mejía and had the opportunity to ask questions and assume patient care.
[2022-08-22] MEDS: ringers solution, lacted 1,000 ML IV SCH (20:45)
[2022-08-22] MEDS: insulin glargine (Lantus) pen - multi-dose SQ SCH (21:19)
[2022-08-22] MEDS: NORepinephrine inj. 32 MG in normal saline 250ml IV soln 218 ML IV SCH (23:59)
[2022-08-23] VITALS (34 sets, daily range): BP systolic 95–159; BP diastolic 53–77
[2022-08-23] MEDS: methylPREDNISolone sod succ 125mg/2ml vial IV SCH ×3 (00:41→16:09)
[2022-08-23] MEDS: heparin, porcine 5000 units/ml vial SQ SCH ×3 (00:42→16:09)
[2022-08-23] MEDS: erythromycin base 250mg tablet OGT SCH ×3 (00:50→16:09)
[2022-08-23] MEDS: fentaNYL/NS/PF 2,500 mcg/250mL 250 ML IV PRN ×2 (01:27→14:48)
[2022-08-23] MEDS: insulin regular, human U-100 3ml vial - multi-dose SQ SCH ×4 (02:30→19:55)
[2022-08-23] MEDS: amiodarone/D5 360MG/200ML BAG 200 ML IV SCH ×4 (03:16→16:55)
[2022-08-23 03:23] LABS: BASOPHILS # (AUTO) 0.1 X10'3 (0-0.2); BASOPHILS % (AUTO) 0.8 % (0-1); EOSINOPHILS % (AUTO) 0.1 % (0-6); HEMATOCRIT 41.1 % (42.0-52.0); LYMPHOCYTES # (AUTO) 0.2 X10'3 (1.1-4.8); LYMPHOCYTES % (AUTO) 2.3 % (21-51); MEAN CORPUSCULAR VOLUME 94.2 FL (78-98); MEAN PLATELET VOLUME 9.6 FL (7.4-10.4); MONOCYTES # (AUTO) 0.4 X10'3 (0-0.9); MONOCYTES % (AUTO) 4.6 % (2-12); NEUTROPHILS # (AUTO) 8.7 X10'3 (1.8-7.7); NEUTROPHILS % (AUTO) 92.2 % (42-75); PLATELET COUNT 165 X10'3 (140-440); RED BLOOD COUNT 4.37 X10'6 (4.70-6.10); RED CELL DISTRIBUTION WIDTH 15.2 % (11.5-14.5); WHITE BLOOD COUNT 9.4 X10'3 (4.5-11.0)
[2022-08-23 03:43] LABS: ALBUMIN 1.7 G/DL (3.4-5.0); ANION GAP 12 (8-16); BLOOD UREA NITROGEN 82 MG/DL (7-18); BUN/CREATININE RATIO 50.6 (5.4-32.0); CALCIUM 7.7 MG/DL (8.5-10.1); CHLORIDE 97 MMOL/L (99-107); CREATININE 1.62 MG/DL (0.60-1.10); GLUCOSE 447 MG/DL (70-104); MAGNESIUM 1.8 MG/DL (1.5-2.4); PHOSPHORUS 1.7 MG/DL (2.3-4.5); SODIUM 138 MMOL/L (135-145); TOTAL CARBON DIOXIDE 29.3 MMOL/L (24-32); eGFR 43 ML/MIN
[2022-08-23 03:53] LABS: POTASSIUM 2.8 MMOL/L (3.5-5.1)
[2022-08-23 04:15] LABS: ABG BASE EXCESS 7.4 mmol/L (-2.0-2.0); ABG HCO3 30.6 mmol/L (22.0-26.0); ABG OXYGEN SATURATION 94.5 % (94-97); ABG PCO2 (T) 38.5 mmHg (35.0-48.0); ABG PO2 (T) 66.4 mmHg (75.0-100.0); FCOHb 0.4 % (0.0-3.9); FMetHb 0.3 % (0.0-1.5); FO2Hb 93.8 % (94-97); PATIENT TEMPERATURE 37.3; PEEP 5 cm H2O; RESPIRATORY RATE 24 b/min; TIDAL VOLUME 500 mL
[2022-08-23] MEDS ORDERED: potassium Cl 20mEq/100mL bag 100 ML IV ONE ×2 (04:35)
[2022-08-23] MEDS: dexmedetomidine inj. 400 MCG in normal saline 100ml IV soln 96 ML IV SCH ×3 (05:10→15:10)
--- NOTE | 2022-08-23 06:21 | NUR ---
Problems reprioritized. Patient report given, questions answered & plan of care reviewed with RASHEL Larsen.
[2022-08-23] MEDS: pantoprazole 40MG/NS 100ML BAG 100 ML IV SCH (07:48)
[2022-08-23] MEDS: cefepime 1GM/NS ADD-VANTAGE 100 ML IV SCH (07:48)
[2022-08-23] MEDS: insulin glargine (Lantus) pen - multi-dose SQ SCH ×2 (07:55→19:54)
[2022-08-23] MEDS: K and/or MAG REPLACEMENT MC SCH (08:00)
[2022-08-23] MEDS: calcium acetate 667mg (PhosLO) capsule OGT SCH (08:00)
[2022-08-23] MEDS: risperiDONE 2mg tablet PO SCH (10:25)
[2022-08-23] MEDS: vasopressin inj. 40 UNIT in normal saline 50ml IV soln 38 ML IV SCH ×2 (10:30→19:50)
[2022-08-23] MEDS: propofol 1000mg/100ml bottle 100 ML IV SCH (10:52)
[2022-08-23] MEDS ORDERED: magnesium 4gm in 100ml NS 100 ML IV PRN (11:00)
[2022-08-23] MEDS ORDERED: magnesium 2GM in 50ml NS 50 ML IV PRN (11:00)
[2022-08-23] MEDS ORDERED: potassium CL 10mEq/100ml bag 100 ML IV PRN (11:00)
[2022-08-23] MEDS: potassium Cl 20mEq/100mL bag 100 ML IV PRN ×2 (11:36→14:42)
--- NOTE | 2022-08-23 11:45 | NUR ---
Pt started on SBT after being off propofol/ fentanyl & precedex started. Pt HR went to 160-170s soon after starting cpap. Dr ordered to stop sbt and resedate.
[2022-08-23] MEDS ORDERED: VANCOMYCIN LEVEL IV ONE (14:30)
[2022-08-23] MEDS: vancomycin/NS 1 GM ADD-VANTAGE 250 ML IV SCH (15:00)
--- NOTE | 2022-08-23 18:25 | NUR ---
Patient in room CICU 2011. I have received report from Chava KISER and had the opportunity to ask questions and assume patient care.
[2022-08-23] MEDS: NORepinephrine inj. 32 MG in normal saline 250ml IV soln 218 ML IV SCH (19:47)
[2022-08-23 21:38] LABS: PHOSPHORUS 1.5 MG/DL (2.3-4.5); POTASSIUM 3.6 MMOL/L (3.5-5.1)
[2022-08-24] VITALS (30 sets, daily range): BP systolic 97–134; BP diastolic 52–75
[2022-08-24] MEDS: heparin, porcine 5000 units/ml vial SQ SCH ×4 (00:29→23:55)
[2022-08-24] MEDS: erythromycin base 250mg tablet OGT SCH ×4 (00:29→23:55)
[2022-08-24] MEDS: methylPREDNISolone sod succ 125mg/2ml vial IV SCH ×4 (00:29→23:54)
[2022-08-24] MEDS: dexmedetomidine inj. 400 MCG in normal saline 100ml IV soln 96 ML IV SCH (01:10)
[2022-08-24] MEDS: amiodarone/D5 360MG/200ML BAG 200 ML IV SCH ×5 (01:14→23:54)
[2022-08-24] MEDS: insulin regular, human U-100 3ml vial - multi-dose SQ SCH ×3 (02:18→14:08)
[2022-08-24 02:41] LABS: BASOPHILS % (AUTO) 0.1 % (0-1); EOSINOPHILS % (AUTO) 0 % (0-6); HEMATOCRIT 42.2 % (42.0-52.0); LYMPHOCYTES # (AUTO) 0.2 X10'3 (1.1-4.8); MEAN CORPUSCULAR HEMOGLOBIN 31.6 PG (27.0-31.0); MEAN CORPUSCULAR HGB CONC 33.3 g/dL (33.0-36.5); MEAN PLATELET VOLUME 10.1 FL (7.4-10.4); MONOCYTES # (AUTO) 0.6 X10'3 (0-0.9); MONOCYTES % (AUTO) 5.1 % (2-12); NEUTROPHILS # (AUTO) 11.1 X10'3 (1.8-7.7); NEUTROPHILS % (AUTO) 92.8 % (42-75); PLATELET COUNT 177 X10'3 (140-440); RED BLOOD COUNT 4.44 X10'6 (4.70-6.10); RED CELL DISTRIBUTION WIDTH 15.8 % (11.5-14.5)
[2022-08-24 03:12] LABS: ALBUMIN 1.8 G/DL (3.4-5.0); ANION GAP 8 (8-16); BLOOD UREA NITROGEN 89 MG/DL (7-18); BUN/CREATININE RATIO 68.5 (5.4-32.0); CALCIUM 7.7 MG/DL (8.5-10.1); CHLORIDE 103 MMOL/L (99-107); GLUCOSE 313 MG/DL (70-104); PHOSPHORUS 1.6 MG/DL (2.3-4.5); POTASSIUM 3.9 MMOL/L (3.5-5.1); SODIUM 143 MMOL/L (135-145); TOTAL CARBON DIOXIDE 32.1 MMOL/L (24-32); TRIGLYCERIDES 230 MG/DL (20-135); eGFR 55 ML/MIN
[2022-08-24] MEDS: fentaNYL/NS/PF 2,500 mcg/250mL 250 ML IV PRN (04:01)
[2022-08-24] MEDS: propofol 1000mg/100ml bottle 100 ML IV SCH (04:02)
[2022-08-24 04:04] LABS: ABG BASE EXCESS 9.4 mmol/L (-2.0-2.0); ABG HCO3 33.8 mmol/L (22.0-26.0); ABG OXYGEN SATURATION 93.5 % (94-97); ABG PCO2 (T) 45.2 mmHg (35.0-48.0); ABG PO2 (T) 68.9 mmHg (75.0-100.0); FCOHb 0.6 % (0.0-3.9); FMetHb 0.3 % (0.0-1.5); FO2Hb 92.7 % (94-97); PATIENT TEMPERATURE 37.4; PEEP 5 cm H2O; RESPIRATORY RATE 24 b/min; TIDAL VOLUME 500 mL; TOTAL HEMOGLOBIN 15.1 G/dl (14.0-17.9)
--- NOTE | 2022-08-24 06:24 | NUR ---
Problems reprioritized. Patient report given, questions answered & plan of care reviewed with Guzman KISER.
--- NOTE | 2022-08-24 06:30 | NUR ---
Patient in room CICU 2011. I have received report from RASHEL Zamudio and had the opportunity to ask questions and assume patient care.
[2022-08-24] MEDS: pantoprazole 40MG/NS 100ML BAG 100 ML IV SCH (07:28)
[2022-08-24] MEDS: cefepime 1GM/NS ADD-VANTAGE 100 ML IV SCH (07:29)
[2022-08-24] MEDS: risperiDONE 2mg tablet PO SCH (07:30)
[2022-08-24] MEDS: insulin glargine (Lantus) pen - multi-dose SQ SCH ×2 (07:35→20:53)
--- NOTE | 2022-08-24 07:43 | NUR ---
Reassessment: Pt remains intubated and sedated. Propofol currently at 6ml/hr providing 158kcals/day. Receiving TF at goal. LBM still 08/18 receiving routine erythromycin. Consider additional bowel care if MD agreeable. Will continue to monitor. Recommendations: 1) Continuous Pivot 1.5 via OGT with 70 mL/hr goal to provide 1680 mL total volume/day, 2520 kcal, 158 g protein, and 1275 mL water 2) No additional water flush at this time d/t hyponatremia; monitor serum Na 3) Routine phos binder per MD 4) Prealbumin q Thursday/ 5) Daily scaled weights 6) Routine bowel care Addendum: 08/24/22 at [address] Amended: Links added.
[2022-08-24] MEDS ORDERED: K and/or MAG REPLACEMENT MC SCH (08:00)
[2022-08-24] MEDS ORDERED: digoxin 250mcg/ml 2ml ampule IV ONE (11:28)
[2022-08-24] MEDS ORDERED: metoprolol tartrate 1mg/ml inj IV ONE (11:29)
--- NOTE | 2022-08-24 15:30 | NUR ---
Right femoral arterial line discontinued.
[2022-08-24] MEDS: vancomycin/NS 1 GM ADD-VANTAGE 250 ML IV SCH (15:39)
[2022-08-24] MEDS: NORepinephrine 8mg/ 250ml NS 250 ML IV SCH (16:00)
--- NOTE | 2022-08-24 18:07 | NUR ---
Problems reprioritized. Patient report given, questions answered & plan of care reviewed with RASHEL Zamudio.
--- NOTE | 2022-08-24 18:28 | NUR ---
Patient in room CICU 2011. I have received report from Guzman KISER and had the opportunity to ask questions and assume patient care.
[2022-08-24] MEDS: insulin Lispro (HumaLOG) vial - multi-dose SQ SCH (20:52)
[2022-08-24] MEDS: ringers solution, lacted 1,000 ML IV SCH (20:53)
[2022-08-24] MEDS: ondansetron/PF 4mg/2ml inj IV PRN (21:47)
[2022-08-25] VITALS (20 sets, daily range): BP systolic 93–146; BP diastolic 53–84
[2022-08-25] MEDS: vancomycin/NS 1 GM ADD-VANTAGE 250 ML IV SCH (01:54)
[2022-08-25] MEDS: insulin Lispro (HumaLOG) vial - multi-dose SQ SCH ×4 (01:59→20:37)
[2022-08-25] MEDS: NORepinephrine 8mg/ 250ml NS 250 ML IV SCH ×2 (02:35→19:33)
[2022-08-25] MEDS: amiodarone/D5 360MG/200ML BAG 200 ML IV SCH ×2 (02:35→11:09)
[2022-08-25 03:03] LABS: BASOPHILS % (AUTO) 0 % (0-1); EOSINOPHILS % (AUTO) 0 % (0-6); HEMATOCRIT 40.5 % (42.0-52.0); HEMOGLOBIN 13.3 g/dl (14.0-17.9); LYMPHOCYTES # (AUTO) 0.2 X10'3 (1.1-4.8); MEAN CORPUSCULAR HEMOGLOBIN 31.4 PG (27.0-31.0); MEAN CORPUSCULAR HGB CONC 32.8 g/dL (33.0-36.5); MEAN CORPUSCULAR VOLUME 95.8 FL (78-98); MEAN PLATELET VOLUME 9.3 FL (7.4-10.4); MONOCYTES # (AUTO) 0.2 X10'3 (0-0.9); MONOCYTES % (AUTO) 3.5 % (2-12); NEUTROPHILS # (AUTO) 5.7 X10'3 (1.8-7.7); NEUTROPHILS % (AUTO) 93.5 % (42-75); PLATELET COUNT 131 X10'3 (140-440); RED BLOOD COUNT 4.22 X10'6 (4.70-6.10); WHITE BLOOD COUNT 6.1 X10'3 (4.5-11.0)
[2022-08-25 03:22] LABS: ALBUMIN 1.9 G/DL (3.4-5.0); ANION GAP 9 (8-16); BLOOD UREA NITROGEN 84 MG/DL (7-18); BUN/CREATININE RATIO 77.1 (5.4-32.0); CALCIUM 7.9 MG/DL (8.5-10.1); CHLORIDE 110 MMOL/L (99-107); CREATININE 1.09 MG/DL (0.60-1.10); GLUCOSE 139 MG/DL (70-104); MAGNESIUM 2.4 MG/DL (1.5-2.4); PHOSPHORUS 3.4 MG/DL (2.3-4.5); POTASSIUM 4.1 MMOL/L (3.5-5.1); SODIUM 152 MMOL/L (135-145); TOTAL CARBON DIOXIDE 33.4 MMOL/L (24-32); eGFR 67 ML/MIN
--- NOTE | 2022-08-25 06:17 | NUR ---
Problems reprioritized. Patient report given, questions answered & plan of care reviewed with Charlie RN.
[2022-08-25] MEDS: ondansetron/PF 4mg/2ml inj IV PRN ×2 (06:56→12:29)
[2022-08-25] MEDS: risperiDONE 2mg tablet PO SCH (08:19)
[2022-08-25] MEDS: methylPREDNISolone sod succ 125mg/2ml vial IV SCH ×2 (08:20→15:06)
[2022-08-25] MEDS: erythromycin base 250mg tablet OGT SCH ×2 (08:20→15:05)
[2022-08-25] MEDS: heparin, porcine 5000 units/ml vial SQ SCH ×2 (08:20→15:06)
[2022-08-25] MEDS: insulin glargine (Lantus) pen - multi-dose SQ SCH ×2 (08:22→20:35)
[2022-08-25] MEDS: cefepime 1GM/NS ADD-VANTAGE 100 ML IV SCH (08:23)
[2022-08-25] MEDS: pantoprazole 40MG/NS 100ML BAG 100 ML IV SCH (08:23)
[2022-08-25] MEDS: CefTRIAXone 2gm/D5W 50ml BAG 50 ML IV SCH (09:22)
[2022-08-25] MEDS: vasopressin inj. 40 UNIT in normal saline 50ml IV soln 38 ML IV SCH (10:30)
[2022-08-25] MEDS ORDERED: metoprolol tartrate 25mg tablet PO ONE (12:10)
[2022-08-25] MEDS ORDERED: amiodarone 200mg tablet PO ONE (12:10)
--- NOTE | 2022-08-25 12:13 | NUR ---
1200 -- RN spoke to Dr. Seymour dt pt being in a fib w rvr rate 130s-140s, BP stable. Amio infusing at mait. dose. Dawn requested RN give 400 MG amidoarone BID for 3 days, then cut dose in half to 200mg. Dr Seymour then came back and stated pt should be given 200 mg Amio PO BID starting now as well as a dose of 25mg Metoprolol now. RN contacted pharmacy to request that PO dose time be changed to now. Addendum: 08/25/22 at 1313 by Charlie Kennedy RN 1230 -- PT Emesis. see i/o. Irene given. Pt up in chair eating. Ninfa bennett/jarod pre order. Addendum: 08/25/22 at 1356 by Charlie Kennedy RN 1135 -- Amio gtt d/c per order, pending po amio dose. 1200 -- Pt in A fib w/ rvr. See previous note. RN re-started amio gtt per provider amio should not be turned off until "2-3 hours" after PO amio is started. Addendum: 08/25/22 at 1446 by Charlie Kennedy RN 1445 -- Dr. Seymour at bedside requesting RN do I/S w pt. RN helped pt w/ I/S. Pt unable to pull more than 1000. Will continue to work w/ pt hourly. Addendum: 08/25/22 at 1550 by Charlie Kennedy RN 1515 -- Pt amio gtt turned off. Pt rate controlled a fib. 1548 - Pt brushing teeth. Still at chair. Pt able to pull 1000 ml on IS. RN will continue to work w/ pt. Pending tx to tele. Addendum: 08/25/22 at 1604 by Charlie Kennedy RN Pt VSS. Pt AOx3-4, uses call light appropriately. Pt sitting in chair. Pt performing IS q1h minimum. Rt IJ still in place, pending PICC line placement. Pt A fib rate controlled. Pt resting on 2LNC. Pt pending tx to tele floor. RN will continue to monitor pt status. Addendum: 08/25/22 at 1653 by Charlie Kennedy RN 1650 -- Carol Azevedo, updated via telephone. aware pt is pending tx to tele. Addendum: 08/25/22 at 1757 by Charlie Kennedy RN 1740 -- pt tx to tele. RN bladder scanned pt, 75 ml in bladder. dentist/owner at bedside. Pt specific meds in pt bin 1698g.
--- NOTE | 2022-08-25 17:44 | NUR ---
Pt rec'd in reclining chair. ROLLER LEVELER bladder scanned and only 75ml in bladder. VS taken, all stable. Pt is sitting up eating dinner and call light within reach.
--- NOTE | 2022-08-25 18:30 | NUR ---
Patient in room PCU 3024. I have received report from RASHEL Ochoa and had the opportunity to ask questions and assume patient care. Patient moved from CICU today, he is sitting in bedside chair eating dinner w/o problem. I will continue to monitor.
[2022-08-25] MEDS: amiodarone 200mg tablet PO SCH (20:27)
[2022-08-25] MEDS: acetaminophen 325mg/10.15ml oral unit dose solution OGT PRN (22:01)
[2022-08-26] MEDS: methylPREDNISolone sod succ 125mg/2ml vial IV SCH ×3 (00:15→16:36)
[2022-08-26] MEDS: heparin, porcine 5000 units/ml vial SQ SCH ×2 (00:16→08:52)
[2022-08-26] MEDS: erythromycin base 250mg tablet OGT SCH ×3 (00:16→16:36)
[2022-08-26] MEDS ORDERED: VANCOMYCIN LEVEL IV ONE (01:30)
[2022-08-26 03:05] VITALS: BP 96/55
[2022-08-26 03:38] LABS: BASOPHILS % (AUTO) 0.7 % (0-1); EOSINOPHILS % (AUTO) 0.1 % (0-6); HEMATOCRIT 39.9 % (42.0-52.0); HEMOGLOBIN 13.1 g/dl (14.0-17.9); LYMPHOCYTES # (AUTO) 0.2 X10'3 (1.1-4.8); LYMPHOCYTES % (AUTO) 2.7 % (21-51); MEAN CORPUSCULAR HEMOGLOBIN 31.3 PG (27.0-31.0); MEAN CORPUSCULAR HGB CONC 32.8 g/dL (33.0-36.5); MEAN CORPUSCULAR VOLUME 95.6 FL (78-98); MEAN PLATELET VOLUME 9.2 FL (7.4-10.4); MONOCYTES # (AUTO) 0.3 X10'3 (0-0.9); MONOCYTES % (AUTO) 3.9 % (2-12); NEUTROPHILS # (AUTO) 6.2 X10'3 (1.8-7.7); NEUTROPHILS % (AUTO) 92.6 % (42-75); PLATELET COUNT 137 X10'3 (140-440); RED BLOOD COUNT 4.17 X10'6 (4.70-6.10); RED CELL DISTRIBUTION WIDTH 15.7 % (11.5-14.5); WHITE BLOOD COUNT 6.7 X10'3 (4.5-11.0)
[2022-08-26 03:51] LABS: ALANINE AMINOTRANSFERASE 88 U/L (12-78); ALBUMIN 1.9 G/DL (3.4-5.0); ALBUMIN/GLOBULIN RATIO 0.5 (1.1-1.5); ALKALINE PHOSPHATASE 103 IU/L (46-116); ANION GAP 8 (8-16); ASPARTATE AMINO TRANSFERASE 81 U/L (10-37); BILIRUBIN,TOTAL 1.4 MG/DL (0.1-1.0); BLOOD UREA NITROGEN 89 MG/DL (7-18); BUN/CREATININE RATIO 72.4 (5.4-32.0); CALCIUM 7.2 MG/DL (8.5-10.1); CHLORIDE 99 MMOL/L (99-107); CREATININE 1.23 MG/DL (0.60-1.10); GLUCOSE 158 MG/DL (70-104); MAGNESIUM 2.4 MG/DL (1.5-2.4); POTASSIUM 4.3 MMOL/L (3.5-5.1); SODIUM 137 MMOL/L (135-145); TOTAL CARBON DIOXIDE 30.5 MMOL/L (24-32); TOTAL PROTEIN 5.5 G/DL (6.4-8.2); eGFR 59 ML/MIN
[2022-08-26 06:00] VITALS: BP 98/59
--- NOTE | 2022-08-26 06:17 | NUR ---
Problems reprioritized. Patient report given, questions answered & plan of care reviewed with RASHEL Ochoa.
[2022-08-26] MEDS: amiodarone 200mg tablet PO SCH ×2 (08:50→19:35)
[2022-08-26] MEDS: CefTRIAXone 2gm/D5W 50ml BAG 50 ML IV SCH (08:53)
[2022-08-26] MEDS: pantoprazole 40MG/NS 100ML BAG 100 ML IV SCH (08:53)
[2022-08-26] MEDS: insulin glargine (Lantus) pen - multi-dose SQ SCH ×2 (08:58→19:31)
[2022-08-26] MEDS: ondansetron/PF 4mg/2ml inj IV PRN (09:01)
[2022-08-26] MEDS: ringers solution, lacted 1,000 ML IV SCH (09:10)
[2022-08-26] MEDS ORDERED: magnesium hydroxide 30ml (MOM) UD suspension PO PRN (09:20)
[2022-08-26] MEDS ORDERED: bisacodyl 10mg suppository rectal RC PRN (09:20)
--- NOTE | 2022-08-26 09:38 | NUR ---
Paged PICC RN [id number] Abhay approved extended PIV please.
[2022-08-26] MEDS: docusate sod 100mg capsule PO SCH ×2 (10:10→19:35)
[2022-08-26] MEDS: risperiDONE 2mg tablet PO SCH (10:10)
[2022-08-26 10:35] VITALS: BP 90/54
--- NOTE | 2022-08-26 11:40 | NUR ---
Called Dr Sánchez - advised I needed a extended PIV, he advised he is no longer following patient, he signed off yesterday 08/25, while pt was in ICU.
--- NOTE | 2022-08-26 11:44 | NUR ---
Paged PICC nurse [id number]. Jaime. Dr Sánchez signed off. Geovanni wants ext PIV in R arm pls.
[2022-08-26] MEDS: acetaminophen 325mg/10.15ml oral unit dose solution OGT PRN (12:07)
--- NOTE | 2022-08-26 12:33 | NUR ---
[id number] Pls assist with transfer to bed. Pt is very weak during steady transfer. Thx
--- NOTE | 2022-08-26 12:45 | NUR ---
Nutrition consult: Pt extubated 08/24 and was placed on Puree diet 08/25 per TAKE DOWN SORTER. Pt has had 50% and 75% of first 2 meals. No concerns for malnutrition at this time as pt was previously on TF. Discussed w/ RN regarding pt's LBM. RN states that pt has not had more than a smear though more bowel care has been added. Will continue to closely follow. Recommendations: 1) Continue Puree diet per TAKE DOWN SORTER recs 2) Monitor need for ONS 3) Routine bowel care 4) Weekly wts Addendum: 08/26/22 at [address] Amended: Links added.
[2022-08-26 14:45] VITALS: BP 96/54
--- NOTE | 2022-08-26 17:53 | NUR ---
VONNIE D/C per MD order. Pressure held per proticol, dressing applied. Pt tolerated well.
[2022-08-26 18:00] VITALS: BP 149/63
--- NOTE | 2022-08-26 18:21 | NUR ---
Orientee documentation: I have reviewed and agree with all interventions, assessments performed and documented by RASHEL Davis.
[2022-08-26] MEDS: insulin Lispro (HumaLOG) vial - multi-dose SQ SCH (19:30)
[2022-08-26] MEDS: HYDROcodone/acetaminophen 10/325mg tab PO SCH (19:35)
[2022-08-26] MEDS: apixaban 5mg tablet PO SCH (19:35)
[2022-08-26] MEDS: ranolazine 500mg SR tablet (Q12H) PO SCH (19:36)
[2022-08-26] MEDS: budesonide 0.5mg/2ml UD nebule IH SCH (20:47)
[2022-08-26] MEDS ORDERED: atorvastatin 20mg tablet PO SCH (21:00)
[2022-08-26] MEDS ORDERED: bumetanide 1mg tablet PO SCH (21:00)
[2022-08-26] MEDS ORDERED: polyethylene glycol 3350 17gm powd pack PO SCH (21:00)
[2022-08-27] MEDS: methylPREDNISolone sod succ 125mg/2ml vial IV SCH ×2 (00:38→08:39)
[2022-08-27] MEDS: erythromycin base 250mg tablet OGT SCH ×3 (00:39→17:22)
[2022-08-27 01:00] VITALS: BP 123/64
[2022-08-27] MEDS: ipratropium/albuterol 3ml nebule NEB SCH ×2 (02:57→08:20)
[2022-08-27 06:00] VITALS: BP 121/60
--- NOTE | 2022-08-27 06:57 | NUR ---
Patient in room PCU 3024. I have received report from JACQUES and had the opportunity to ask questions and assume patient care.
[2022-08-27] MEDS ORDERED: aspirin 81mg, enteric-coated 1 TAB TABLET.DR PO SCH (08:00)
[2022-08-27] MEDS ORDERED: montelukast 10mg tablet PO SCH (08:00)
[2022-08-27] MEDS ORDERED: loratadine 10mg tablet PO SCH (08:00)
[2022-08-27] MEDS ORDERED: pantoprazole 40mg Tablet.DR PO SCH (08:00)
[2022-08-27] MEDS: budesonide 0.5mg/2ml UD nebule IH SCH (08:20)
[2022-08-27] MEDS: docusate sod 100mg capsule PO SCH (08:23)
[2022-08-27] MEDS: apixaban 5mg tablet PO SCH (08:23)
[2022-08-27] MEDS: amiodarone 200mg tablet PO SCH (08:24)
[2022-08-27] MEDS: risperiDONE 2mg tablet PO SCH (08:24)
[2022-08-27] MEDS: ranolazine 500mg SR tablet (Q12H) PO SCH (08:24)
[2022-08-27] MEDS: HYDROcodone/acetaminophen 10/325mg tab PO SCH (08:24)
[2022-08-27] MEDS: CefTRIAXone 2gm/D5W 50ml BAG 50 ML IV SCH (08:40)
[2022-08-27 09:41] LABS: ALBUMIN 2.1 G/DL (3.4-5.0); ANION GAP 11 (8-16); BLOOD UREA NITROGEN 91 MG/DL (7-18); CALCIUM 7.4 MG/DL (8.5-10.1); CHLORIDE 97 MMOL/L (99-107); GLUCOSE 136 MG/DL (70-104); SODIUM 133 MMOL/L (135-145); TOTAL CARBON DIOXIDE 24.6 MMOL/L (24-32)
[2022-08-27] MEDS: insulin glargine (Lantus) pen - multi-dose SQ SCH (09:42)
[2022-08-27] MEDS: insulin Lispro (HumaLOG) vial - multi-dose SQ SCH ×2 (09:43→13:54)
[2022-08-27 09:47] LABS: BUN/CREATININE RATIO 78.4 (5.4-32.0); CREATININE 1.16 MG/DL (0.60-1.10); POTASSIUM 5.2 MMOL/L (3.5-5.1); eGFR 63 ML/MIN
[2022-08-27 10:00] VITALS: BP 118/62
--- NOTE | 2022-08-27 12:50 | NUR ---
PAGER ID: [phone] MESSAGE: Pt Gt Sandoval RM [id number] unable to draw blood x4 attempts for AM lab orders please advise Merline DUKE [phone]
--- NOTE | 2022-08-27 17:42 | NUR ---
receiving facility contacted after calling [facility] transport and being told they had no records of a molded goods spot picker to transport patient to next facility. was told by Irina [facility] she will contact [facility] and call us back.
--- NOTE | 2022-08-27 17:51 | NUR ---
HOSSEIN Medication Administration: For this medication-pass time frame, all medication were reviewed, dispensed, administered and documented per hospital policy by HOSSEIN DORANTES.
--- NOTE | 2022-08-27 17:51 | NUR ---
WASTEWATER ENGINEER documentation: I have reviewed and agree with all interventions, assessments performed and documented by HOSSEIN DORANTES.
--- NOTE | 2022-08-27 17:54 | NUR ---
Pt DC to [facility], pt transported via [facility] ambulance on 3L of O2. Pt VSS, alert, oriented ,and appropriate at time of discharge. Pt discharge with PIV intact and patent, with no complaints of discomfort or pain during infusion of ordered fluids. Report called to recieving facility.
== END 2022-08-27 17:47 | DRG 871 ==
LOC: ER 10:19 → ED HOLD 15:11 → CICU 2S 18:53 → PCU 3S 08-25 17:30
PROVIDERS: ADMIT Internal Medicine Critical Care Medicine; ATTEND Internal Medicine Critical Care Medicine
PROC: 5A1945Z Respiratory Ventilation, 24-96 Consecutive Hours (ICD-10-PCS; principal; 2022-08-20)
PROC: 0BH17EZ Insertion of Endotracheal Airway into Trachea, Via Natural or Artificial Opening (ICD-10-PCS; 2022-08-20)
PROC: 05HY33Z Insertion of Infusion Device into Upper Vein, Percutaneous Approach (ICD-10-PCS; 2022-08-20)
PROC: 5A09357 Assistance with Respiratory Ventilation, Less than 24 Consecutive Hours, Continuous Positive Airway Pressure (ICD-10-PCS; 2022-08-20)
DX: A41.9 Sepsis, unspecified organism (principal); J18.9 Pneumonia, unspecified organism; R65.21 Severe sepsis with septic shock; J96.21 Acute and chronic respiratory failure with hypoxia; N17.0 Acute kidney failure with tubular necrosis; E87.1 Hypo-osmolality and hyponatremia; E87.4 Mixed disorder of acid-base balance; I50.22 Chronic systolic (congestive) heart failure; J44.0 Chronic obstructive pulmonary disease with (acute) lower respiratory infection; Z20.822 Contact with and (suspected) exposure to COVID-19; B95.3 Streptococcus pneumoniae as the cause of diseases classified elsewhere; Z66 Do not resuscitate; D72.823 Leukemoid reaction; R00.0 Tachycardia, unspecified; D69.6 Thrombocytopenia, unspecified; E11.22 Type 2 diabetes mellitus with diabetic chronic kidney disease; E87.8 Other disorders of electrolyte and fluid balance, not elsewhere classified; I25.10 Atherosclerotic heart disease of native coronary artery without angina pectoris; I48.91 Unspecified atrial fibrillation; N18.32 Chronic kidney disease, stage 3b; Z79.4 Long term (current) use of insulin; Z95.1 Presence of aortocoronary bypass graft; Z79.899 Other long term (current) drug therapy; Z79.82 Long term (current) use of aspirin
CPT/HCPCS: 31500; 36415; 36556; 36600; 71045; 80048; 80053; 81001; 82803; 82948; 83036; 83605; 83735; 84100; 84132; 84134; 84145; 84478; 85007; 85018; 85025; 87040; 87070; 87077; 87081; 87186; 87502; 87503; 87635; 87811; 92508; 92616; 93005; 93306; 94002; 94003; 94640; 94660; 94760; 96365; 96366; 96368; 96375; 97110; 97116; 97161; 97530; 99291; 99292; A4333; A4340; A4615; A4620; A6213; A6258; A6402; A6449; A9900; C1751; C9113; C9803; G0378; J0282; J0330; J0456; J0692; J0696; J1160; J1265; J1644; J1815; J1956; J2250; J2405; J2704; J2930; J3010; J3370; J3480; J3490; J7030; J7040; J7050; J7070; J7120

== ENCOUNTER 2022-10-01 15:50 | Inpatient (IN) | payer MEDICARE, MEDICAID ==
--- NOTE | 2022-09-08 18:33 | NUR ---
Patient in room PCU 3013. I have received report from Juancho CATALAN and had the opportunity to ask questions and assume patient care.
[~2022-10-01] VITALS: Ht 185.4 cm; Wt 90.5 kg
[~2022-10-01 15:50] MED LIST changes: +MONT-40 PO; +PANT40TA54 PO
[2022-10-01] MEDS ORDERED: CefTRIAXone 2gm/D5W 50ml BAG 50 ML IV ONE (16:00)
[2022-10-01] MEDS ORDERED: normal saline 1000ML IV soln IV ONE (16:55)
[2022-10-01 17:22] LABS: BASOPHILS # (AUTO) 0.1 X10'3 (0-0.2); BASOPHILS % (AUTO) 0.7 % (0-1); EOSINOPHILS % (AUTO) 0.6 % (0-6); HEMATOCRIT 30.6 % (42.0-52.0); LYMPHOCYTES # (AUTO) 0.8 X10'3 (1.1-4.8); LYMPHOCYTES % (AUTO) 9.7 % (21-51); MEAN CORPUSCULAR HEMOGLOBIN 30.6 PG (27.0-31.0); MEAN CORPUSCULAR HGB CONC 32.7 g/dL (33.0-36.5); MEAN CORPUSCULAR VOLUME 93.5 FL (78-98); MONOCYTES # (AUTO) 0.9 X10'3 (0-0.9); MONOCYTES % (AUTO) 11.2 % (2-12); NEUTROPHILS # (AUTO) 6.5 X10'3 (1.8-7.7); NEUTROPHILS % (AUTO) 77.8 % (42-75); PLATELET COUNT 302 X10'3 (140-440); RED BLOOD COUNT 3.27 X10'6 (4.70-6.10); RED CELL DISTRIBUTION WIDTH 16.8 % (11.5-14.5); WHITE BLOOD COUNT 8.4 X10'3 (4.5-11.0)
[2022-10-01 17:35] LABS: ALANINE AMINOTRANSFERASE 22 U/L (12-78); ALBUMIN 2.5 G/DL (3.4-5.0); ALBUMIN/GLOBULIN RATIO 0.5 (1.1-1.5); ALKALINE PHOSPHATASE 158 IU/L (46-116); ANION GAP 7 (8-16); ASPARTATE AMINO TRANSFERASE 30 U/L (10-37); BILIRUBIN,TOTAL 1.7 MG/DL (0.1-1.0); BLOOD UREA NITROGEN 33 MG/DL (7-18); BUN/CREATININE RATIO 18.8 (5.4-32.0); CALCIUM 8.6 MG/DL (8.5-10.1); CHLORIDE 96 MMOL/L (99-107); CREATININE 1.76 MG/DL (0.60-1.10); GLUCOSE 98 MG/DL (70-104); SODIUM 135 MMOL/L (135-145); TOTAL CARBON DIOXIDE 31.9 MMOL/L (24-32); TOTAL PROTEIN 7.2 G/DL (6.4-8.2); eGFR 39 ML/MIN
[2022-10-01 17:39] LABS: MAGNESIUM 1.6 MG/DL (1.5-2.4)
[2022-10-01 17:45] LABS: POTASSIUM 3.3 MMOL/L (3.5-5.1)
[2022-10-01 17:58] LABS: CLARITY,URINE CLEAR (Clear); GLUCOSE, URINE 100 mg/dl (Neg); KETONES,URINE TRACE mg/dl (Neg); LEUKOCYTE ESTERASE ,URINE NEGATIVE (Neg); NITRITES, URINE NEGATIVE (Neg); OCCULT BLOOD,URINE NEGATIVE (Neg); PROTEIN,URINE NEGATIVE (Neg); UROBILINOGEN,URINE >=8.0 E.U/dL (0.2-1.0)
[2022-10-01 18:06] LABS: COLOR,URINE AMBER (Yellow); UA COLLECTION TYPE VOIDED
[2022-10-01] MEDS ORDERED: morphine 2 MG/ML inj. syringe IV PRN (20:10)
[2022-10-01] MEDS ORDERED: ondansetron/PF 4mg/2ml inj IV PRN (20:10)
[2022-10-01] MEDS ORDERED: magnesium 4gm in 100ml NS 100 ML IV PRN (20:10)
[2022-10-01] MEDS ORDERED: magnesium Cl slow-release 64mg tablet PO PRN (20:10)
[2022-10-01] MEDS ORDERED: acetaminophen 325mg tablet PO PRN ×2 (20:10)
[2022-10-01] MEDS ORDERED: potassium Cl 20 mEq SR tablet PO PRN ×2 (20:10)
[2022-10-01] MEDS ORDERED: potassium Cl 40MEQ/1/2NS 520ml 520 ML IV PRN (20:10)
[2022-10-01] MEDS ORDERED: glucagon, human recombinant 1mg kit SUBCUT PRN (20:30)
[2022-10-01] MEDS ORDERED: MESSAGE TO PHARMACY PO ONE (20:30)
[2022-10-01] MEDS ORDERED: DEXTROSE 15 GM of carb/4 tabs (each vial/BOTTLE has 4 tablets) PO PRN ×2 (20:30)
[2022-10-01] MEDS ORDERED: albuterol 2.5 MG/3 ML nebule NEB PRN (20:30)
[2022-10-01] MEDS ORDERED: dextrose 50%-water 50ml dispensing syringe IV PRN ×2 (20:30)
[2022-10-01] MEDS: insulin glargine (Lantus) pen - multi-dose SQ SCH (21:00)
[2022-10-01] MEDS ORDERED: temazepam 15mg capsule PO PRN (21:00)
[2022-10-01 23:17] LABS: URINE AMPHETAMINE SCREEN NEGATIVE (Neg); URINE BARBITUATE SCREEN NEGATIVE (Neg); URINE BENZODIAZEPINES SCREEN NEGATIVE (Neg); URINE CANNABINOID SCREEN NEGATIVE (Neg); URINE COCAINE SCREEN NEGATIVE (Neg); URINE METHADONE SCREEN NEGATIVE (Neg); URINE OPIATE SCREEN POSITIVE (Neg); URINE PHENCYCLIDINE SCREEN NEGATIVE (Neg)
[2022-10-01] MEDS: HYDROcodone/acetaminophen 5mg/325mg tablet PO PRN (23:29)
--- NOTE | 2022-10-02 02:10 | NUR ---
Patient placed on hospital for comfort while waiting for inpatient room assignment.
[2022-10-02] MEDS ORDERED: BUME1TAB8 PO (02:50)
[2022-10-02 03:36] LABS: BASOPHILS # (AUTO) 0.1 X10'3 (0-0.2); BASOPHILS % (AUTO) 0.9 % (0-1); EOSINOPHILS # (AUTO) 0.1 X10'3 (0-0.9); EOSINOPHILS % (AUTO) 0.6 % (0-6); HEMATOCRIT 32.4 % (42.0-52.0); HEMOGLOBIN 10.9 g/dl (14.0-17.9); LYMPHOCYTES % (AUTO) 10.7 % (21-51); MEAN CORPUSCULAR HEMOGLOBIN 31.6 PG (27.0-31.0); MEAN CORPUSCULAR HGB CONC 33.8 g/dL (33.0-36.5); MEAN CORPUSCULAR VOLUME 93.8 FL (78-98); MEAN PLATELET VOLUME 7.6 FL (7.4-10.4); MONOCYTES # (AUTO) 1.1 X10'3 (0-0.9); MONOCYTES % (AUTO) 11.9 % (2-12); NEUTROPHILS # (AUTO) 6.9 X10'3 (1.8-7.7); NEUTROPHILS % (AUTO) 75.9 % (42-75); PLATELET COUNT 333 X10'3 (140-440); RED BLOOD COUNT 3.45 X10'6 (4.70-6.10); WHITE BLOOD COUNT 9.1 X10'3 (4.5-11.0)
[2022-10-02 03:54] LABS: ALANINE AMINOTRANSFERASE 22 U/L (12-78); ALBUMIN 2.6 G/DL (3.4-5.0); ALBUMIN/GLOBULIN RATIO 0.5 (1.1-1.5); ALKALINE PHOSPHATASE 170 IU/L (46-116); ANION GAP 6 (8-16); ASPARTATE AMINO TRANSFERASE 30 U/L (10-37); BILIRUBIN,TOTAL 1.4 MG/DL (0.1-1.0); BLOOD UREA NITROGEN 31 MG/DL (7-18); BUN/CREATININE RATIO 20.5 (5.4-32.0); CALCIUM 8.7 MG/DL (8.5-10.1); CHLORIDE 100 MMOL/L (99-107); CREATININE 1.51 MG/DL (0.60-1.10); GLUCOSE 104 MG/DL (70-104); POTASSIUM 3.3 MMOL/L (3.5-5.1); SODIUM 136 MMOL/L (135-145); TOTAL CARBON DIOXIDE 29.6 MMOL/L (24-32); TOTAL PROTEIN 7.4 G/DL (6.4-8.2); eGFR 46 ML/MIN
[2022-10-02] MEDS: pantoprazole 40mg Tablet.DR PO SCH (07:28)
[2022-10-02] MEDS: loratadine 10mg tablet PO SCH (07:28)
[2022-10-02] MEDS: ranolazine 500mg SR tablet (Q12H) PO SCH ×2 (07:28→19:48)
[2022-10-02] MEDS: montelukast 10mg tablet PO SCH (07:29)
[2022-10-02] MEDS: CefTRIAXone 2gm/D5W 50ml BAG 50 ML IV SCH (07:29)
[2022-10-02] MEDS: sacubitril/valsartan 24mg-26mg tablet PO SCH ×2 (07:30→19:48)
[2022-10-02] MEDS ORDERED: pantoprazole 40mg Tablet.DR PO SCH (07:30)
[2022-10-02] MEDS: furosemide 40mg/4ml inj IV SCH ×2 (07:30→20:08)
[2022-10-02] MEDS: metoprolol succinate 25mg (24-HOUR) SR. Tablet PO SCH (07:31)
--- NOTE | 2022-10-02 07:32 | NUR ---
Lasix, Entresto and Metop not given w/ a SBP of 92
[2022-10-02] MEDS ORDERED: albuterol 2.5 MG/3 ML nebule NEB SCH (08:00)
[2022-10-02] MEDS ORDERED: budesonide 0.5mg/2ml UD nebule IH SCH (08:00)
[2022-10-02] MEDS ORDERED: ipratropium/albuterol 3ml nebule NEB SCH (08:00)
[2022-10-02] MEDS ORDERED: methylPREDNISolone sod succ 125mg/2ml vial IV SCH (08:00)
[2022-10-02] MEDS ORDERED: heparin, porcine 5000 units/ml vial SQ SCH (08:00)
[2022-10-02] MEDS ORDERED: predniSONE 5mg tablet PO SCH (08:00)
[2022-10-02] MEDS ORDERED: ISOSORBIDE MONONITRATE 10 MG PO SCH (08:00)
[2022-10-02] MEDS: methylPREDNISolone sod succ/PF 40mg inj. IV SCH ×3 (08:25→20:08)
[2022-10-02] MEDS ORDERED: ipratropium/albuterol 3ml nebule NEB PRN (08:25)
[2022-10-02 09:00] VITALS: BP 90/60
[2022-10-02] MEDS: azithromycin 250mg tablet PO SCH (09:00)
--- NOTE | 2022-10-02 09:00 | NUR ---
Pt arrived from ED, Report recieved. Pt is a 67 year old male, alert and oriented x 4, breathing even and unlabored on continuous oxygen @ 4 LPM, Pt has a PIV to Right FA 20g, Pt has hx of dialysis with shunt to left arm, pt uses urinal and up to restroom ad janey with rolling walker. Pt has an intermittent cough non productive. Pt oriented to room and call light.
[2022-10-02 09:02] LABS: CHOL/HDL RATIO 6.2 (0.00-4.99); CHOLESTEROL 143 MG/DL (0-200); HDL CHOLESTEROL 23 MG/DL (35-60); LDL CHOLESTEROL 98 MG/DL (50-100); TRIGLYCERIDES 134 MG/DL (20-135)
--- NOTE | 2022-10-02 09:38 | NUR ---
Per ED Nurse endorsement, Pt BGM 82 Addendum: 10/02/22 at 0938 by Juancho Anna LVN Amended: Links added.
[2022-10-02] MEDS: aspirin 81mg, enteric-coated 1 TAB TABLET.DR PO SCH (10:10)
[2022-10-02] MEDS: apixaban 5mg tablet PO SCH ×2 (10:11→21:43)
[2022-10-02] MEDS: HYDROcodone/acetaminophen 5mg/325mg tablet PO PRN (10:12)
[2022-10-02 11:00] VITALS: BP 97/51
[2022-10-02] MEDS: ipratropium/albuterol 3ml nebule NEB SCH ×4 (11:15→23:00)
[2022-10-02 15:00] VITALS: BP 86/62
[2022-10-02] MEDS ORDERED: metoprolol tartrate 1mg/ml inj IV ONE (17:28)
--- NOTE | 2022-10-02 17:38 | NUR ---
HR rate up to 150's sustaining at 130's. Dr. Bates informed and metropolol 5mg IV given x 1.
[2022-10-02 18:00] VITALS: BP 100/56
--- NOTE | 2022-10-02 18:40 | NUR ---
Patient in room PCU 3013. I have received report from Juancho CATALAN and had the opportunity to ask questions and assume patient care.
--- NOTE | 2022-10-02 18:41 | NUR ---
Problems reprioritized. Patient report given, questions answered & plan of care reviewed with Kelli CATALAN. Bedside report given.
[2022-10-02] MEDS ORDERED: digoxin 250mcg/ml 2ml ampule IV ONE (19:00)
[2022-10-02] MEDS: atorvastatin 20mg tablet PO SCH (21:37)
[2022-10-02] MEDS: bumetanide 1mg tablet PO SCH (21:44)
[2022-10-02 22:00] VITALS: BP 103/65
[2022-10-02] MEDS: insulin Lispro (HumaLOG) vial - multi-dose SQ SCH (22:09)
[2022-10-02] MEDS: insulin glargine (Lantus) pen - multi-dose SQ SCH (22:10)
[2022-10-03] MEDS ORDERED: digoxin 250mcg/ml 2ml ampule IV ONE ×2 (01:00→07:00)
[2022-10-03] MEDS: methylPREDNISolone sod succ/PF 40mg inj. IV SCH ×4 (01:11→21:23)
--- NOTE | 2022-10-03 02:00 | NUR ---
pt refused 0200 vitals
[2022-10-03] MEDS: ipratropium/albuterol 3ml nebule NEB SCH ×6 (03:00→23:23)
--- NOTE | 2022-10-03 06:07 | NUR ---
Problems reprioritized. Patient report given, questions answered & plan of care reviewed with Juancho CATALAN.
--- NOTE | 2022-10-03 06:44 | NUR ---
Patient in room PCU 3013. I have received report from Kelli CATALAN and had the opportunity to ask questions and assume patient care. Pt is awake. Reports acceptable pain of 09/16. No SOB. Pt awake. Pt asking to go home but would like to discuss with hospitalist at rounds. Addendum: 10/03/22 at 0647 by Juancho Anna LVN Amended: Links added.
[2022-10-03 06:48] LABS: BASOPHILS % (AUTO) 0.1 % (0-1); EOSINOPHILS % (AUTO) 0 % (0-6); HEMATOCRIT 30.3 % (42.0-52.0); HEMOGLOBIN 10.2 g/dl (14.0-17.9); LYMPHOCYTES # (AUTO) 0.4 X10'3 (1.1-4.8); LYMPHOCYTES % (AUTO) 4.7 % (21-51); MEAN CORPUSCULAR HGB CONC 33.8 g/dL (33.0-36.5); MEAN CORPUSCULAR VOLUME 94.6 FL (78-98); MEAN PLATELET VOLUME 7.6 FL (7.4-10.4); MONOCYTES # (AUTO) 0.2 X10'3 (0-0.9); MONOCYTES % (AUTO) 3.2 % (2-12); NEUTROPHILS # (AUTO) 7.2 X10'3 (1.8-7.7); PLATELET COUNT 295 X10'3 (140-440); RED CELL DISTRIBUTION WIDTH 16.6 % (11.5-14.5); WHITE BLOOD COUNT 7.8 X10'3 (4.5-11.0)
[2022-10-03 07:00] VITALS: BP 116/56
[2022-10-03 07:16] LABS: ALANINE AMINOTRANSFERASE 19 U/L (12-78); ALBUMIN 2.6 G/DL (3.4-5.0); ALBUMIN/GLOBULIN RATIO 0.6 (1.1-1.5); ALKALINE PHOSPHATASE 159 IU/L (46-116); ANION GAP 7 (8-16); ASPARTATE AMINO TRANSFERASE 20 U/L (10-37); BILIRUBIN,TOTAL 0.9 MG/DL (0.1-1.0); BLOOD UREA NITROGEN 35 MG/DL (7-18); BUN/CREATININE RATIO 18.7 (5.4-32.0); CALCIUM 8.7 MG/DL (8.5-10.1); CHLORIDE 102 MMOL/L (99-107); CREATININE 1.87 MG/DL (0.60-1.10); GLUCOSE 257 MG/DL (70-104); MAGNESIUM 1.9 MG/DL (1.5-2.4); PHOSPHORUS 3.9 MG/DL (2.3-4.5); POTASSIUM 4.2 MMOL/L (3.5-5.1); SODIUM 138 MMOL/L (135-145); TOTAL CARBON DIOXIDE 29.5 MMOL/L (24-32); TOTAL PROTEIN 7.2 G/DL (6.4-8.2); eGFR 36 ML/MIN
[2022-10-03] MEDS: furosemide 40mg/4ml inj IV SCH ×2 (07:48→21:23)
[2022-10-03] MEDS: CefTRIAXone 2gm/D5W 50ml BAG 50 ML IV SCH (08:00)
--- NOTE | 2022-10-03 08:00 | NUR ---
Pt stated he will call his to bring his Isorbide Mononitrate from home. Senior It Specialist encouraged patient to bring labeled bottle from home.
[2022-10-03] MEDS: azithromycin 250mg tablet PO SCH (08:35)
[2022-10-03] MEDS: pantoprazole 40mg Tablet.DR PO SCH (08:36)
[2022-10-03] MEDS: ranolazine 500mg SR tablet (Q12H) PO SCH ×2 (08:37→20:10)
[2022-10-03] MEDS: HYDROcodone/acetaminophen 5mg/325mg tablet PO PRN (08:38)
[2022-10-03] MEDS: insulin Lispro (HumaLOG) vial - multi-dose SQ SCH ×3 (08:44→19:17)
[2022-10-03] MEDS: montelukast 10mg tablet PO SCH (08:47)
[2022-10-03] MEDS: loratadine 10mg tablet PO SCH (08:47)
--- NOTE | 2022-10-03 09:49 | NUR ---
Pt stated his will be calling his after his shower to bring in his home medications.
[2022-10-03] MEDS: sacubitril/valsartan 24mg-26mg tablet PO SCH ×2 (10:32→20:10)
[2022-10-03] MEDS: aspirin 81mg, enteric-coated 1 TAB TABLET.DR PO SCH (10:32)
[2022-10-03] MEDS: apixaban 5mg tablet PO SCH ×2 (10:32→22:19)
[2022-10-03] MEDS: metoprolol succinate 25mg (24-HOUR) SR. Tablet PO SCH (10:33)
[2022-10-03] MEDS ORDERED: ISOSORBIDE MONONITRATE 20 MG PO SCH (10:44)
[2022-10-03 11:28] VITALS: BP 101/42
[2022-10-03] MEDS ORDERED: acetaminophen 325mg tablet PO PRN (11:45)
[2022-10-03] MEDS: ISOSORBIDE MONONITRATE 20 MG PO SCH (11:52)
--- NOTE | 2022-10-03 13:12 | NUR ---
Notified. Page Accepted Message: [id number]. Pt HR 90-110 aFib at rest. With activity, pt Hr 130-150 with activity but not sustained. Marlo Anna LVN Transaction number: [id number]
[2022-10-03 15:00] VITALS: BP 101/52
[2022-10-03] MEDS: digoxin 125mcg (0.125mg) tablet PO SCH (15:13)
[2022-10-03 18:00] VITALS: BP 109/56
--- NOTE | 2022-10-03 18:33 | NUR ---
Problems reprioritized. Patient report given, questions answered & plan of care reviewed with Kelli CATALAN.
[2022-10-03 22:00] VITALS: BP 96/58
[2022-10-03] MEDS: bumetanide 1mg tablet PO SCH (22:00)
[2022-10-03] MEDS: insulin glargine (Lantus) pen - multi-dose SQ SCH (22:15)
[2022-10-03] MEDS: atorvastatin 20mg tablet PO SCH (22:19)
[2022-10-04 02:00] VITALS: BP 107/52
[2022-10-04] MEDS: ipratropium/albuterol 3ml nebule NEB SCH ×6 (03:00→23:18)
[2022-10-04] MEDS: methylPREDNISolone sod succ/PF 40mg inj. IV SCH ×4 (03:16→22:41)
--- NOTE | 2022-10-04 06:05 | NUR ---
Problems reprioritized. Patient report given, questions answered & plan of care reviewed with Juancho CATALAN.
--- NOTE | 2022-10-04 06:28 | NUR ---
Patient in room PCU 3013. I have received report from Kelli CATALAN and had the opportunity to ask questions and assume patient care. Pt sleeping slightly right side lying. No distress. Breathing even and unlabored on continuous 4 LPM via nasal cannula. Addendum: 10/04/22 at 0630 by Juancho Anna LVN Amended: Links added.
[2022-10-04 07:00] VITALS: BP 105/36
[2022-10-04 07:10] LABS: BASOPHILS % (AUTO) 0.1 % (0-1); EOSINOPHILS % (AUTO) 0 % (0-6); HEMATOCRIT 30.3 % (42.0-52.0); HEMOGLOBIN 10.2 g/dl (14.0-17.9); LYMPHOCYTES # (AUTO) 0.3 X10'3 (1.1-4.8); LYMPHOCYTES % (AUTO) 2.5 % (21-51); MEAN CORPUSCULAR HEMOGLOBIN 31.8 PG (27.0-31.0); MEAN CORPUSCULAR HGB CONC 33.8 g/dL (33.0-36.5); MEAN PLATELET VOLUME 7.7 FL (7.4-10.4); MONOCYTES # (AUTO) 0.3 X10'3 (0-0.9); MONOCYTES % (AUTO) 2.7 % (2-12); NEUTROPHILS # (AUTO) 11.7 X10'3 (1.8-7.7); NEUTROPHILS % (AUTO) 94.7 % (42-75); PLATELET COUNT 316 X10'3 (140-440); RED BLOOD COUNT 3.22 X10'6 (4.70-6.10); RED CELL DISTRIBUTION WIDTH 16.8 % (11.5-14.5); WHITE BLOOD COUNT 12.4 X10'3 (4.5-11.0)
[2022-10-04 07:15] LABS: ALANINE AMINOTRANSFERASE 23 U/L (12-78); ALBUMIN 2.8 G/DL (3.4-5.0); ALBUMIN/GLOBULIN RATIO 0.6 (1.1-1.5); ALKALINE PHOSPHATASE 167 IU/L (46-116); ANION GAP 7 (8-16); ASPARTATE AMINO TRANSFERASE 31 U/L (10-37); BILIRUBIN,TOTAL 0.7 MG/DL (0.1-1.0); BLOOD UREA NITROGEN 45 MG/DL (7-18); BUN/CREATININE RATIO 26.2 (5.4-32.0); CALCIUM 8.6 MG/DL (8.5-10.1); CHLORIDE 101 MMOL/L (99-107); CREATININE 1.72 MG/DL (0.60-1.10); GLUCOSE 248 MG/DL (70-104); MAGNESIUM 1.8 MG/DL (1.5-2.4); PHOSPHORUS 3.6 MG/DL (2.3-4.5); POTASSIUM 4.5 MMOL/L (3.5-5.1); SODIUM 137 MMOL/L (135-145); TOTAL CARBON DIOXIDE 29.3 MMOL/L (24-32); TOTAL PROTEIN 7.4 G/DL (6.4-8.2); eGFR 40 ML/MIN
[2022-10-04] MEDS: ranolazine 500mg SR tablet (Q12H) PO SCH ×2 (07:40→19:32)
[2022-10-04] MEDS: pantoprazole 40mg Tablet.DR PO SCH (07:41)
[2022-10-04] MEDS: azithromycin 250mg tablet PO SCH (07:41)
[2022-10-04] MEDS: loratadine 10mg tablet PO SCH (07:41)
[2022-10-04] MEDS: digoxin 125mcg (0.125mg) tablet PO SCH (07:43)
[2022-10-04] MEDS: ISOSORBIDE MONONITRATE 20 MG PO SCH (07:43)
[2022-10-04] MEDS: HYDROcodone/acetaminophen 5mg/325mg tablet PO PRN (07:46)
[2022-10-04] MEDS: montelukast 10mg tablet PO SCH (07:47)
[2022-10-04] MEDS: insulin Lispro (HumaLOG) vial - multi-dose SQ SCH ×3 (07:58→19:31)
[2022-10-04] MEDS: furosemide 40mg/4ml inj IV SCH ×2 (08:14→20:00)
[2022-10-04] MEDS: CefTRIAXone 2gm/D5W 50ml BAG 50 ML IV SCH (08:19)
[2022-10-04] MEDS: sacubitril/valsartan 24mg-26mg tablet PO SCH ×2 (09:21→19:35)
[2022-10-04] MEDS: metoprolol succinate 25mg (24-HOUR) SR. Tablet PO SCH (09:22)
[2022-10-04] MEDS: apixaban 5mg tablet PO SCH ×2 (11:01→21:47)
[2022-10-04] MEDS: aspirin 81mg, enteric-coated 1 TAB TABLET.DR PO SCH (11:01)
[2022-10-04 11:09] VITALS: BP 107/83
--- NOTE | 2022-10-04 16:05 | NUR ---
WASHER CARCASS documentation: I have reviewed and agree with all interventions, assessments performed and documented by HOSSEIN GUERRA.
--- NOTE | 2022-10-04 16:05 | NUR ---
HOSSEIN Medication Administration: For this medication-pass time frame, all medication were reviewed, dispensed, administered and documented per hospital policy by HOSSEIN GUERRA.
[2022-10-04 18:00] VITALS: BP 113/64
--- NOTE | 2022-10-04 18:41 | NUR ---
Problems reprioritized. Patient report given, questions answered & plan of care reviewed with Kelli CATALAN. Addendum: 10/04/22 at 1841 by Juancho Anna LVN Amended: Links added.
--- NOTE | 2022-10-04 18:49 | NUR ---
Patient in room PCU 3013. I have received report from Juancho CATALAN and had the opportunity to ask questions and assume patient care.
[2022-10-04] MEDS: insulin glargine (Lantus) pen - multi-dose SQ SCH (21:44)
[2022-10-04] MEDS: atorvastatin 20mg tablet PO SCH (21:47)
[2022-10-04] MEDS: bumetanide 1mg tablet PO SCH (21:49)
[2022-10-04 22:00] VITALS: BP 106/65
[2022-10-05 02:00] VITALS: BP 122/56
[2022-10-05] MEDS: methylPREDNISolone sod succ/PF 40mg inj. IV SCH ×2 (03:00→09:19)
[2022-10-05] MEDS: ipratropium/albuterol 3ml nebule NEB SCH ×3 (03:00→11:00)
[2022-10-05 06:00] VITALS: BP 116/67
--- NOTE | 2022-10-05 06:34 | NUR ---
Problems reprioritized. Patient report given, questions answered & plan of care reviewed with Shante KISER.
[2022-10-05 06:46] LABS: BASOPHILS % (AUTO) 0.1 % (0-1); EOSINOPHILS % (AUTO) 0 % (0-6); HEMATOCRIT 31.2 % (42.0-52.0); HEMOGLOBIN 10.2 g/dl (14.0-17.9); LYMPHOCYTES # (AUTO) 0.4 X10'3 (1.1-4.8); LYMPHOCYTES % (AUTO) 3.1 % (21-51); MEAN CORPUSCULAR HEMOGLOBIN 30.9 PG (27.0-31.0); MEAN CORPUSCULAR HGB CONC 32.5 g/dL (33.0-36.5); MEAN CORPUSCULAR VOLUME 94.9 FL (78-98); MEAN PLATELET VOLUME 7.7 FL (7.4-10.4); MONOCYTES # (AUTO) 0.4 X10'3 (0-0.9); MONOCYTES % (AUTO) 3.4 % (2-12); NEUTROPHILS # (AUTO) 11.1 X10'3 (1.8-7.7); NEUTROPHILS % (AUTO) 93.4 % (42-75); PLATELET COUNT 311 X10'3 (140-440); RED BLOOD COUNT 3.29 X10'6 (4.70-6.10); RED CELL DISTRIBUTION WIDTH 17.3 % (11.5-14.5); WHITE BLOOD COUNT 11.9 X10'3 (4.5-11.0)
--- NOTE | 2022-10-05 06:58 | NUR ---
Patient in room PCU 3013. I have received report from HOSSEIN PINEDA, and had the opportunity to ask questions and assume patient care.
[2022-10-05 07:12] LABS: ALANINE AMINOTRANSFERASE 35 U/L (12-78); ALBUMIN 2.8 G/DL (3.4-5.0); ALBUMIN/GLOBULIN RATIO 0.6 (1.1-1.5); ALKALINE PHOSPHATASE 159 IU/L (46-116); ANION GAP 4 (8-16); ASPARTATE AMINO TRANSFERASE 41 U/L (10-37); BILIRUBIN,TOTAL 0.6 MG/DL (0.1-1.0); BLOOD UREA NITROGEN 56 MG/DL (7-18); BUN/CREATININE RATIO 36.1 (5.4-32.0); CALCIUM 8.8 MG/DL (8.5-10.1); CHLORIDE 101 MMOL/L (99-107); CREATININE 1.55 MG/DL (0.60-1.10); GLUCOSE 277 MG/DL (70-104); MAGNESIUM 1.8 MG/DL (1.5-2.4); PHOSPHORUS 3.1 MG/DL (2.3-4.5); POTASSIUM 4.1 MMOL/L (3.5-5.1); SODIUM 135 MMOL/L (135-145); TOTAL CARBON DIOXIDE 29.7 MMOL/L (24-32); TOTAL PROTEIN 7.2 G/DL (6.4-8.2); eGFR 45 ML/MIN
[2022-10-05 09:16] VITALS: BP 111/56
[2022-10-05] MEDS: CefTRIAXone 2gm/D5W 50ml BAG 50 ML IV SCH (09:18)
[2022-10-05] MEDS: furosemide 40mg/4ml inj IV SCH (09:21)
[2022-10-05] MEDS: digoxin 125mcg (0.125mg) tablet PO SCH (09:24)
[2022-10-05] MEDS: sacubitril/valsartan 24mg-26mg tablet PO SCH (09:25)
[2022-10-05] MEDS: montelukast 10mg tablet PO SCH (09:25)
[2022-10-05] MEDS: ranolazine 500mg SR tablet (Q12H) PO SCH (09:25)
[2022-10-05] MEDS: ISOSORBIDE MONONITRATE 20 MG PO SCH (09:25)
[2022-10-05] MEDS: pantoprazole 40mg Tablet.DR PO SCH (09:26)
[2022-10-05] MEDS: azithromycin 250mg tablet PO SCH (09:26)
[2022-10-05] MEDS: loratadine 10mg tablet PO SCH (09:26)
[2022-10-05] MEDS: insulin Lispro (HumaLOG) vial - multi-dose SQ SCH (09:31)
[2022-10-05] MEDS: aspirin 81mg, enteric-coated 1 TAB TABLET.DR PO SCH (09:34)
[2022-10-05] MEDS: apixaban 5mg tablet PO SCH (09:34)
[2022-10-05] MEDS ORDERED: LAN0.125T PO (10:05)
[2022-10-05] MEDS ORDERED: CEFD300C3 PO (10:05)
[2022-10-05] MEDS ORDERED: LACT1CAP26 PO (10:05)
[2022-10-05] MEDS ORDERED: PRED10TA23 PO (10:05)
[2022-10-05 11:24] VITALS: BP 112/61
[2022-10-05] MEDS: metoprolol succinate 25mg (24-HOUR) SR. Tablet PO SCH (11:26)
--- NOTE | 2022-10-05 12:04 | NUR ---
PT STABLE FOR DISCHARGE PER MD. DISCHARGE AND FOLLOW UP INSTRUCTIONS REVIEWED WITH PT. PIVS REMOVED WITH TIPS INTACT. TELE BOX REMOVED. PRESCRIPTIONS SENT TO PT'S PREFERRED PHARMACY ON [address]. PT WHEELED TO PRIVATE CAR BY HOSPITAL STAFF. PT DISCHARGED TO HOME.
== END 2022-10-05 12:15 | disposition home health service (06) | DRG 193 ==
LOC: ER 15:51 → ED HOLD 20:15 → PCU 3S 10-02 09:52
PROVIDERS: ADMIT Internal Medicine; ATTEND Family Medicine
DX: J18.9 Pneumonia, unspecified organism (principal); I50.33 Acute on chronic diastolic (congestive) heart failure; J96.21 Acute and chronic respiratory failure with hypoxia; I13.0 Hypertensive heart and chronic kidney disease with heart failure and stage 1 through stage 4 chronic kidney disease, or unspecified chronic kidney disease; I48.20 Chronic atrial fibrillation, unspecified; J44.0 Chronic obstructive pulmonary disease with (acute) lower respiratory infection; N18.30 Chronic kidney disease, stage 3 unspecified; E11.22 Type 2 diabetes mellitus with diabetic chronic kidney disease; E66.9 Obesity, unspecified; E78.5 Hyperlipidemia, unspecified; E87.6 Hypokalemia; I48.0 Paroxysmal atrial fibrillation; I27.20 Pulmonary hypertension, unspecified; I87.2 Venous insufficiency (chronic) (peripheral); I25.10 Atherosclerotic heart disease of native coronary artery without angina pectoris; Z20.822 Contact with and (suspected) exposure to COVID-19; Z79.52 Long term (current) use of systemic steroids; Z91.119 Patient's noncompliance with dietary regimen due to unspecified reason; Z79.01 Long term (current) use of anticoagulants; Z87.891 Personal history of nicotine dependence; Z95.810 Presence of automatic (implantable) cardiac defibrillator; Z95.1 Presence of aortocoronary bypass graft
CPT/HCPCS: 36415; 71045; 80053; 80061; 80162; 80305; 81003; 82948; 83605; 83735; 83880; 84100; 84145; 84443; 84484; 85025; 87040; 87081; 87502; 87503; 87635; 93005; 94640; 94760; 97161; 97530; 99285; A6258; A6402; G0378; J0696; J1160; J1815; J1940; J2920; J2930; J3490; J7030; J7040; J7512